=== PATIENT | female | born 1960 | race Hispanic/Latino ===

== ENCOUNTER 2019-10-02 15:43 | Outpatient (CLI) | payer OTHER, SELFPAY ==
--- NOTE | ~2019-10-02 | MM_ITS ---
EXAMINATION: MM screening carlos BI w jacklyn HISTORY: Screening mammogram TECHNIQUE: Craniocaudal and mediolateral oblique 3-D tomosynthesis images were obtained and synthetic 2-D images were generated. CAD analysis was submitted and interpreted. COMPARISON: 11/15/2016 bilateral digital screening mammogram BREAST PARENCHYMAL COMPOSITION: FINDINGS: There is no evidence of suspicious mass, calcification, or architectural distortion to sugg est malignancy in either breast. There has been no suspicious interval change. IMPRESSION: 1. No mammographic evidence of malignancy. 2. Recommend routine screening mammography in one year. BI-RADS Category 1: Negative Reviewed, dictated and finalized at location A.
== END 2019-10-02 15:44 | disposition home or self-care (01) ==
LOC: ANHIMG 15:45
PROVIDERS: PCP Nurse Practitioner Family; Visit Provider Nurse Practitioner Family
DX: Z12.31 Encounter for screening mammogram for malignant neoplasm of breast (principal)
CPT/HCPCS: 77063; 77067

== ENCOUNTER 2021-02-07 17:21 | Inpatient (IN) | payer OTHER, SELFPAY ==
[2021-02-07] VITALS (7 sets, daily range): BP systolic 115–131; BP diastolic 69–88; PULSE 77–87; RESP 18–22; TEMP 37.2; O2SAT 91–94
--- NOTE | ~2021-02-07 | XR_ITS ---
EXAMINATION: XR chest 1V portable DATE: 02/15/2021 06:53 INDICATION: COVID TECHNIQUE: frontal view of the chest was obtained. COMPARISON: Chest radiograph dated 02/11/2021 FINDINGS: Patchy and bandlike opacities throughout the right lung relatively sparing the apex and in the left m id and lower lung zones consistent with COVID pneumonia. No pleural effusion or pneumothorax. The car diomediastinal silhouette is normal. IMPRESSION: 1. No significant change in diffuse bilateral lung disease consistent with COVID pneumonia. Reviewed, dictated and finalized at location A. CAL MASSAGE THERAPIST IMPRESSION: 1. No significant change in diffuse bilateral lung disease consistent with COVI D pneumonia.
--- NOTE | ~2021-02-07 | XR_ITS ---
EXAMINATION: XR chest 1V portable EXAM DATE: 02/07/2021 18:47 INDICATION: chest pain, COVID +, Symptoms Since 01/29, Coughing. TECHNIQUE: Portable AP frontal chest x-ray was obtained. Comparison is made to prior examination from 07/14/2015. FINDINGS: Moderate amount of bilateral ill-defined airspace disease, probably pneumonia (appearance i s consistent with Covid 19). No pneumothorax or pleural effusion. Cardiomediastinal silhouette is nor mal. There are no osseous abnormalities identified. IMPRESSION: Moderate amount of bilateral pneumonia. Reviewed, dictated and finalized at location A. N FACTORS ADVISOR LEAD
--- NOTE | ~2021-02-07 | US_ITS ---
EXAMINATION: US venous doppler LE BI EXAM DATE: 02/12/2021 14:29 INDICATION: LE swelling, COVID 19. TECHNIQUE: Multiple grayscale, color flow and Doppler images of the lower extremity deep venous syste ms bilaterally were obtained and reviewed. There is no prior study for comparison. FINDINGS: Right side: The right common femoral, femoral and profunda veins demonstrate normal color flow, respi ratory variation, augmentation and compressibility. Compressibility, color flow confirmed within the right popliteal, posterior tibial, peroneal, and greater saphenous veins. Left side: The left common femoral, femoral and profunda veins demonstrate normal color flow, respira tory variation, augmentation and compressibility. Compressibility, color flow confirmed within the l eft popliteal, posterior tibial, peroneal, and greater saphenous veins. IMPRESSION: 1. No lower extremity deep venous thrombosis bilaterally. Reviewed, dictated and finalized at location A. MAKER PLASTER
--- NOTE | ~2021-02-07 | XR_ITS ---
EXAMINATION: XR chest 1V portable EXAM DATE: 02/11/2021 16:13 INDICATION: COVID pneumonia. TECHNIQUE: Portable AP frontal chest x-ray was obtained. Comparison is made to prior examination from 02/07/2021. FINDINGS: Moderate amount of bilateral ill-defined airspace disease, COVID pneumonia with mild progre ssion compared to previous x-ray. Mild cardiomegaly. No pneumothorax or pleural effusion. There are n o osseous abnormalities identified. IMPRESSION: Moderate amount of bilateral COVID pneumonia, mild progression. Reviewed, dictated and finalized at location A. ONOMY INSTRUCTOR
--- NOTE | ~2021-02-07 | CT_ITS ---
EXAMINATION: CTA chest PE protocol EXAM DATE: 02/08/2021 18:13 INDICATION: Pleuritic chest pain. COVID. TECHNIQUE: Spiral CTA of the chest (pulmonary arteries) was performed with 100 cc Omnipaque 350 intr avenous contrast injection. Images were acquired during the pulmonary arterial phase. Coronal maxi mum intensity projection 3D-reconstructions were created by the technologist on dedicated workstation . Axial, coronal and sagittal reformatted images were reviewed. The dose-length product (DLP) for t his examination was 563.02 mGy-cm. The exposure was tailored according to patient size (auto mA exp osure control), and iterative reconstruction (ASIR) was used as additional dose reduction technique. There is no prior study for comparison. FINDINGS: Pulmonary arteries are well opacified and without intraluminal filling defects. No thora cic aortic dissection. Moderate amount of bilateral groundglass airspace disease, appearance is cons istent with acute COVID pneumonia. There are no pleural or pericardial effusions. Tracheobronchial tree is patent. There is no mediastinal, hilar or axillary lymphadenopathy. There is no pneumoth orax. Heart normal in size. No evidence of coronary arterial calcification. Hepatic steatosis. There is thoracic spondylosis without osteoblastic or osteolytic lesions identified. IMPRESSION: 1. Moderate amount of bilateral groundglass airspace disease consistent with COVID pneumonia. 2. No pulmonary emboli. 3. Hepatic steatosis. Reviewed, dictated and finalized at location A. M AND GAS TURBINES ASSEMBLER IMPRESSION: 1. Moderate amount of bilateral groundglass airspace disease consistent with C OVID pneumonia. 2. No pulmonary emboli. 3. Hepatic steatosis.
--- NOTE | 2021-02-07 17:23 | ECG_ITS ---
Measurements Intervals [place] Rate: 83 P: 53 HI: 170 QRS: -4 QRSD: 89 T: 23 QT: 365 QTc: 431 Interpretive Statements SINUS RHYTHM DELAYED PRECORDIAL R/S TRANSITION BORDERLINE ECG Electronically Signed On 02-07-2021 20:05:39 BUSINESS TEACHER by Yemi Jefferson D.O.
[2021-02-07 17:59] LABS: Basophils Percent Auto 0.2 % (0.2-1.2); Hematocrit 36.6 % (37.0-47.0); Hemoglobin 12.5 g/dL (12.0-15.0); Immature Granulocyte Absolute 0.02 K/mm3 (0.00-0.031); Immature Granulocyte Percent A 0.3 % (0-0.5); Lymphocytes Absolute Auto 0.62 K/mm3 (0.9-3.2); Lymphocytes Percent Auto 10.2 % (18.3-44.2); Mean Corpuscular HGB Conc 34.2 g/dl (32-36); Mean Corpuscular Hemoglobin 31.3 pg (26-34); Mean Corpuscular Volume 91.5 fl (80-100); Mean Platelet Volume 9.3 fl (7.4-10.4); Monocytes Absolute Auto 0.2 K/mm3 (0.1-0.6); Monocytes Percent Auto 3.1 % (2.6-8.5); Neutrophils Absolute Auto 5.2 K/mm3 (1.3-6.7); Neutrophils Percent Auto 86.2 % (45.5-73.1); Platelet Count Result 254 k/mm3 (150-375); Red Cell Distribution Width 12.7 % (11.5-14.5); White Blood Count 6.1 K/mm3 (4.5-10.0)
[2021-02-07 18:10] LABS: Prothrombin Time 12.8 Seconds (11.1-14.7)
[2021-02-07 18:11] LABS: Alanine Aminotransferase 35 U/L (4-35); Albumin Level 3.8 g/dL (3.5-5.1); Alkaline Phosphatase 68 U/L (38-126); Anion Gap 7 mmol/L (8-16); Aspartate Amino Transferase 50 U/L (14-36); Bilirubin,Total 0.4 mg/dL (0.2-1.3); Blood Urea Nitrogen 12 mg/dL (7-17); Carbon Dioxide 30 mmol/L (22-30); Chloride 95 mmol/L (98-107); Estimated CRCL calculation 78 ml/min; Estimated Glomerular Filt Rate > 60; Glucose 124 mg/dL (65-110); Lipase 133 U/L (23-300); Partial Thromboplastin Time 32.1 SECONDS (22.3-36.8); Potassium 3.8 mmol/L (3.4-5.0); Sodium 132 mmol/L (137-145)
[2021-02-07 18:22] LABS: Troponin I < 0.012 ng/mL (0.000-0.034)
--- NOTE | 2021-02-07 19:08 | ED.SOB ---
HPI - SOB/Dyspnea General Chief Complaint: Shortness of Breath/Dyspnea Stated Complaint: COVID + cough Time Seen by Provider: 02/07/21 18:51 Source: patient Mode of arrival: EMS Limitations: no limitations History of Present Illness HPI Narrative: 60-year-old with a history of hypothyroidism here with complaints of shortness of breath, cough. Patient states that she tested positive for Covid over the weekend. She states her who was diagnosed first and later she developed the symptoms. She is not vaccinated. She denies any chest pain, nausea or vomiting or abdominal pain. MD elicited complaint: shortness of breath and cough Onset (ago): day(s) (4) Timing: constant Severity: moderate Exacerbating factors: exertion Relieving factors: oxygen and rest Associated symptoms: denies other symptoms Treatment prior to arrival: none Related Data Home oxygen amount: none Home Medications Medication Instructions Recorded Confirmed bimatoprost [Lumigan] 1 drp EACH EYE HS 02/07/21 02/07/21 escitalopram oxalate 10 mg PO HS 02/07/21 02/07/21 levothyroxine 100 mcg PO DAILY 02/07/21 02/07/21 Allergies Allergy/AdvReac Type Severity Reaction Status Date / Time No Known Allergies Allergy Unverified 07/27/15 17:45 Review of Systems Review of Systems: All systems reviewed & are unremarkable except as noted in HPI and below Constitutional: Constitutional: Reports no additional constitutional complaints Eyes: Eyes: Reports no additional eye complaints ENT: Reports system reviewed and no additional complaints, except as documented Cardiovascular: Cardiovascular: Reports no additional cardiovascular complaints Respiratory: Respiratory: Reports as per HPI Gastrointestinal: Gastrointestinal: Reports no additional gastrointestinal complaints Musculoskeletal: Musculoskeletal: Reports no additional musculoskeletal complaints Integumentary/Breasts: Skin/Breast: Reports system reviewed and no additional complaints, except as docu Neurologic: Reports system reviewed and no additional complaints, except as documented Psychiatric: Psychiatric: Reports no additional psychiatric complaints [facility] Past Medical History Medical History (Updated 02/07/21 @ 20:12 by Kayleen Boland DO) Depression Hypothyroidism Family History Family History (Updated 02/07/21 @ 23:11 by Debi Garcia RN) Mother Hx of CABG Father Cerebrovascular accident Hypertension Hypotension Sibling Cancer Social History Social History Smoking status: Never smoker Alcohol intake: former Substance use: never Spiritual care concerns: No Exam Narrative: GENERAL: Well-appearing, well-nourished, and in no acute distress. HEAD: Normocephalic, atraumatic. EYES: PERRLA and EOMI. NECK: Supple. CHEST: No respiratory distress. coarse breath sounds , no wheeze. HEART: Regular rate and rhythm. No murmur heard. Normal peripheral pulses. ABDOMEN: Soft, nontender, nondistended, normal active bowel sounds. EXTREMITIES: Normal range of motion. No edema. SKIN: Warm, dry, no rash. NEURO: No focal deficits. Alert and oriented x3. PSYCH: Normal mood and affect. Course Course Emergency Course: Inform patient about her lab work, x-ray findings. Agreed for admission. We will start IV Decadron and remdesivir. discussed with hospitalist . Vital Signs Vital signs: Vital Signs Temperature 37.2 C 02/07/21 17:23 Pulse Rate 87 02/07/21 17:23 Respiratory Rate 20 02/07/21 17:23 Blood Pressure 131/69 02/07/21 17:23 Pulse Oximetry 93 02/07/21 17:23 Temperature 37.2 C 02/07/21 17:23 Pulse Rate 87 02/07/21 22:37 Respiratory Rate 18 02/07/21 22:37 Blood Pressure 131/77 02/07/21 22:37 Pulse Oximetry 92 02/07/21 22:37 MDM - SOB/Dyspnea MDM Narrative Medical decision making narrative: With a history of recent diagnosis of Covid at home with shortn
[2021-02-07] MEDS: DEXAMETHASONE SOD PHOS INJ 4 MG/ML VIAL 6 MG IV PUSH (19:31)
--- NOTE | 2021-02-07 19:47 | PM.IMHP ---
H&P: HPI History of Present Illness Date/Time: 02/07/21 19:47 Chief Complaint: Shortness of breath, COVID positive Narrative: 60-year-old female with a past medical history of obesity, obstructive sleep apnea and hypothyroidism who presented to the ER via EMS with chest pain and shortness of breath. The patient reports that she has been having upper respiratory symptoms with nonproductive cough, fevers and chills since . She tested positive for COVID on 01/29/2021. She did not receive a COVID vaccine. She has also had accompanying occasional nausea. She has not had any vomiting. She did have a couple of days of loose stools but her last diarrheal stool was on the . Her stools have been brown and watery. She reports that she has pleuritic chest pain that is not worse with cough or palpation. She has not noticed any lower extremity swelling. She has noticed nocturnal hypoxia with oxygen saturations as low as 84%. She does have a history of obstructive sleep apnea but never followed up for her titrating polysomnogram. She reports that even before she had COVID she would occasionally in a panic because she felt like she was drowning. Since she has had COVID this has been happening much more frequently. She denies any orthopnea as long she is not sleep. She does snore in sleeps very restlessly on regular basis. She reports her oxygen saturations during the day have been as low as 91. During our conversation the patient's oxygen saturation did briefly dropped to 89%. Her fevers have been above 102? at times. Her last fever was this morning. She has been taking [id number] cough suppressants, Tylenol, ibuprofen and Aleve as needed to attempt to relieve her symptoms without much success. She reports that her [id number] is currently hospitalized at another hospital and is ?touching go. Her [id number] is 94 years old. Her mother had COVID last year and likely does not have symptoms at this time. Review of Systems Review of Systems: 12 systems were reviewed with pertinent positives and negatives per HPI. Except as documented in the HPI, all other systems were reviewed and are negative. [facility] Past Medical History Medical History (Updated 02/08/21 @ 00:34 by Kayleen Boland DO) Depression Glaucoma Hepatic steatosis Hypothyroidism Obstructive sleep apnea Surgical History Surgical History (Updated 02/08/21 @ 00:34 by Kayleen Boland DO) History of hysterectomy (~1991) Without oophorectomy. 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 She has been to her current for 6 years. She has 3 children who are reportedly healthy. Primary care provider: Tia Barros Code status: Full code Surrogate decision maker: Reshma Muller (daughter) Smoking status: Never smoker Alcohol intake: former Substance use: never Spiritual care concerns: No Meds Home Medications and Allergies Home Medications Medication Instructions Recorded Confirmed Type bimatoprost [Lumigan] 1 drp EACH EYE HS 02/07/21 02/07/21 History escitalopram oxalate 10 mg PO HS 02/07/21 02/07/21 History levothyroxine 100 mcg PO DAILY 02/07/21 02/07/21 History Allergies Allergy/AdvReac Type Severity Reaction Status Date / Time No Known Allergies Allergy Unverified 07/27/15 17:45 Vital Signs Vital Signs - 24 hr 02/07/21 17:23 02/07/21 19:23 02/07/21 19:32 Temperat
[2021-02-07 19:53] LABS: Alanine Aminotransferase 36 U/L (4-35); Estimated CRCL calculation 78 ml/min; Estimated Glomerular Filt Rate > 60
[2021-02-07 20:02] LABS: INR 0.9; Prothrombin Time 12.5 Seconds (11.1-14.7)
--- NOTE | 2021-02-07 20:33 | PC.NURSE ---
Pt ambulated to restroom, changed clothing/gown, remained 94% on room air.
[2021-02-07 22:04] LABS: Troponin I < 0.012 ng/mL (0.000-0.034)
[2021-02-07] MEDS: REMDESIVIR 200 MG/NS 250 ML 200 MG/250 ML BAG 250 MG IVPB (22:37)
--- NOTE | 2021-02-07 23:06 | ADMGEN ---
This patient, Mandie Montoya, was admitted to 3 [facility] Surg Room 309-01 at 2245 . Patient/family oriented to hospital policies and general routines including ID bracelet, bed and alarms, visiting hours, pain management, procedures, bathroom and other care routines, personal items, smoking policy, room service/diet, and visiting hours. Information on how to activate the Rapid Response Team has been discussed. Patient/Family are encouraged to report perceived risks to care and to ask questions if they do not understand what they are told or what they should do.
[2021-02-08] VITALS (11 sets, daily range): BP systolic 102–131; BP diastolic 54–68; PULSE 71–85; RESP 18–22; TEMP 35.8–36.7; O2SAT 87–93
[2021-02-08 00:06] LABS: Troponin I < 0.012 ng/mL (0.000-0.034)
[2021-02-08] MEDS: LEVOTHYROXINE SODIUM 100 MCG TABLET PO (05:47)
[2021-02-08 07:20] LABS: Basophils Percent Auto 0.2 % (0.2-1.2); Hematocrit 38.3 % (37.0-47.0); Hemoglobin 12.8 g/dL (12.0-15.0); Immature Granulocyte Absolute 0.03 K/mm3 (0.00-0.031); Immature Granulocyte Percent A 0.6 % (0-0.5); Lymphocytes Absolute Auto 0.74 K/mm3 (0.9-3.2); Lymphocytes Percent Auto 14.4 % (18.3-44.2); Mean Corpuscular HGB Conc 33.4 g/dl (32-36); Mean Corpuscular Hemoglobin 30.1 pg (26-34); Mean Corpuscular Volume 90.1 fl (80-100); Mean Platelet Volume 9.5 fl (7.4-10.4); Monocytes Absolute Auto 0.2 K/mm3 (0.1-0.6); Monocytes Percent Auto 4.3 % (2.6-8.5); Neutrophils Absolute Auto 4.1 K/mm3 (1.3-6.7); Neutrophils Percent Auto 80.5 % (45.5-73.1); Platelet Count Result 291 k/mm3 (150-375); Red Blood Count 4.25 M/mm3 (4.2-5.4); Red Cell Distribution Width 12.6 % (11.5-14.5); White Blood Count 5.1 K/mm3 (4.5-10.0)
[2021-02-08 08:01] LABS: Alanine Aminotransferase 34 U/L (4-35); Albumin Level 3.7 g/dL (3.5-5.1); Alkaline Phosphatase 65 U/L (38-126); Anion Gap 9 mmol/L (8-16); Aspartate Amino Transferase 47 U/L (14-36); Bilirubin,Total 0.4 mg/dL (0.2-1.3); Blood Urea Nitrogen 13 mg/dL (7-17); Calcium 7.9 mg/dL (8.4-10.2); Carbon Dioxide 28 mmol/L (22-30); Chloride 95 mmol/L (98-107); Estimated CRCL calculation 90 ml/min; Estimated Glomerular Filt Rate > 60; Glucose 153 mg/dL (65-110); Lactate Dehydrogenase 956 U/L (313-618); Potassium 3.7 mmol/L (3.4-5.0); Sodium 132 mmol/L (137-145)
[2021-02-08 08:08] LABS: CRP 12.3 mg/dL (<1.0)
[2021-02-08 08:20] LABS: INR 1.1; Prothrombin Time 13.6 Seconds (11.1-14.7)
[2021-02-08 08:23] LABS: D Dimer 0.99 ug/mL (<0.48)
--- NOTE | 2021-02-08 09:00 | PC.NURSE ---
Patient's daughter, Callie Lowery called and requested an update on patient. Spoke with patient and asked if I could provide Callie with an update on her status, patient stated, you can talk with all of my daughter, Reshma Muller, Rina Ashby and Callie Lowery . SN contacted Callie at number provided and updated her on her mother's current condition.
[2021-02-08] MEDS: DEXAMETHASONE SOD PHOS INJ 4 MG/ML VIAL 6 MG IV PUSH (09:17)
[2021-02-08] MEDS: ENOXAPARIN 40 MG/0.4 ML SYRINGE SUB-Q (09:17)
--- NOTE | 2021-02-08 16:41 | PM.IMPN ---
Progress Note: A&P Assessment and Plan (1) Pneumonia due to 2019-nCoV: Code(s): U07.1 - COVID-19; J12.82 - Pneumonia due to coronavirus disease 2018 Status: Acute Assessment and Plan: Patient was positive for COVID 01/29/2021 and had symptoms since Thanksgi -continue remdesivir, Decadron and Lovenox -she is currently on 2 L of oxygen and feeling better -D-dimer slightly elevated but she has persistent pleuritic chest pain. Will order CTA of the chest. Does not seem to be ACS (2) Acute respiratory failure with hypoxia: Code(s): J96.01 - Acute respiratory failure with hypoxia Status: Acute Assessment and Plan: Continue oxygen for sats less than 90 -secondary to above (3) Anxiety: Code(s): F41.9 - Anxiety disorder, unspecified Status: Acute Assessment and Plan: Continue Lexapro (4) Hypothyroidism: Code(s): E03.9 - Hypothyroidism, unspecified Status: Acute Assessment and Plan: Continue levothyroxine (5) Transaminitis: Code(s): R74.01 - Elevation of levels of liver transaminase levels Status: Acute Assessment and Plan: Likely due to acute illness -monitor Time Spent With Patient Time with patient: 25 - 35 minutes Subjective Date/time seen: 02/08/21 16:41 Interval history: Pt is a 60-year-old female here for COVID. Patient was seen today and states she is doing better now that her oxygen is better. She has shortness of breath with movement but does okay at rest. She has pain in her chest with deep breathing. The pain is located right in the middle and feels fine when she takes shallow breaths. She has a decreased appetite and has had diarrhea once today. She was not vaccinated Review of Systems Review of Systems: All systems reviewed & are unremarkable except as noted in HPI and below Exam Narrative: General: Well developed well nourished patient in NAD HEENT: normocephalic Neck: supple Neuro: Alert and oriented x4 CV:RRR Resp: Crackles, bilaterally. No conversational dyspnea Abd: Soft, non distended. No pain to palpation. Positive bowel sounds Extremities: No swelling, erythema, or pain to palpation. Objective Data Vital Signs Vital Signs: Vital Signs - 24 hr 02/07/21 17:23 02/07/21 19:23 02/07/21 19:30 Temperature 98.9 F Pulse Rate 87 85 Respiratory Rate 20 20 Blood Pressure 131/69 Pulse Oximetry 93 91 94 02/07/21 19:32 02/07/21 19:33 02/07/21 21:25 Temperature Pulse Rate 77 80 85 Respiratory Rate 19 22 H Blood Pressure 126/71 115/88 Pulse Oximetry 94 93 02/07/21 22:37 02/08/21 02:05 02/08/21 05:08 Temperature Pulse Rate 87 78 75 Respiratory Rate 18 22 H 19 Blood Pressure 131/77 Pulse Oximetry 92 91 92 02/08/21 05:45 02/08/21 06:00 02/08/21 08:00 Temperature 98.1 F 97.3 F L Pulse Rate 84 84 75 Respiratory Rate 18 18 20 Blood Pressure 102/54 L 118/64 Pulse Oximetry 93 93 90 02/08/21 12:00 02/08/21 13:02 02/08/21 15:17 Temperature 96.5 F L Pulse Rate 85 Respiratory Rate 18 Blood Pressure 119/63 Pulse Oximetry 89 L 90 92 Intake/Output Intake/Output: Intake & Output 02/05/21 02/06/21 02/07/21 02/08/21 23:59 23:59 23:59 23:59 Intake Total 250 1190 Output Total 800 Balance 250 390 Meds/Results Medications: Active Medications Generic Name Dose Route Start Last Admin Trade Name Freq PRN Reason Stop Dose Admin Acetaminophen 650 mg 02/07/21 19:21 Acetaminophen 325 Mg Tablet PO Q4H PRN Mild Pain (1-3) or Fever Dexamethasone Sodium Phosphate 6 mg 02/08/21 09:00 02/08/21 09:17 Dexamethasone Sod Phos Inj 4 Mg/Ml Vial IV PUSH 02/17/21 09:01 6 mg DAILY KAY Administration Enoxaparin Sodium 40 mg 02/08/21 09:00 02/08/21 09:17 Enoxaparin 40 Mg/0.4 Ml Syringe SUB-Q 40 mg DAILY KAY Administration Escitalopram Oxalate 10 mg 02/08/21 21:00 Escitalopram
[2021-02-08] MEDS: LATANOPROST 0.005% OP SOLN 2.5 ML BTL 1 DROP EACH EYE (20:26)
[2021-02-08] MEDS: ESCITALOPRAM OXALATE 10 MG TABLET PO (20:26)
[2021-02-08] MEDS: REMDESIVIR 100 MG/NS 250 ML 100 MG/250 ML BAG 250 MG IVPB (22:31)
[2021-02-08] MEDS: ACETAMINOPHEN 325 MG TABLET 650 MG PO (22:32)
[2021-02-09] VITALS (10 sets, daily range): BP systolic 94–117; BP diastolic 52–67; PULSE 58–76; RESP 18; TEMP 35.9–36.3; O2SAT 88–98
--- NOTE | 2021-02-09 00:09 | PCRCNOTE ---
pt refusing CPAP stating that it does not work the way she would like and she does better laying prone with a nasal cannula. in standby in pt room
[2021-02-09] MEDS: LEVOTHYROXINE SODIUM 100 MCG TABLET PO (06:21)
[2021-02-09 06:55] LABS: Hematocrit 36.6 % (37.0-47.0); Hemoglobin 12.3 g/dL (12.0-15.0); Mean Corpuscular HGB Conc 33.6 g/dl (32-36); Mean Corpuscular Hemoglobin 30.4 pg (26-34); Mean Corpuscular Volume 90.6 fl (80-100); Mean Platelet Volume 9.3 fl (7.4-10.4); Platelet Count Result 323 k/mm3 (150-375); Red Blood Count 4.04 M/mm3 (4.2-5.4); Red Cell Distribution Width 12.7 % (11.5-14.5); White Blood Count 11.5 K/mm3 (4.5-10.0)
[2021-02-09 07:03] LABS: INR 1.1
[2021-02-09 07:08] LABS: Alanine Aminotransferase 41 U/L (4-35); Albumin Level 3.3 g/dL (3.5-5.1); Alkaline Phosphatase 61 U/L (38-126); Anion Gap 8 mmol/L (8-16); Aspartate Amino Transferase 54 U/L (14-36); Bilirubin,Total 0.4 mg/dL (0.2-1.3); Blood Urea Nitrogen 18 mg/dL (7-17); CRP 5.2 mg/dL (<1.0); Carbon Dioxide 32 mmol/L (22-30); Chloride 99 mmol/L (98-107); Estimated CRCL calculation 69 ml/min; Estimated Glomerular Filt Rate > 60; Glucose 131 mg/dL (65-110); Potassium 3.8 mmol/L (3.4-5.0); Sodium 139 mmol/L (137-145)
[2021-02-09] MEDS: ENOXAPARIN 40 MG/0.4 ML SYRINGE SUB-Q (08:11)
[2021-02-09] MEDS: DEXAMETHASONE SOD PHOS INJ 4 MG/ML VIAL 6 MG IV PUSH (08:11)
--- NOTE | 2021-02-09 16:11 | PM.IMPN ---
Progress Note: A&P Assessment and Plan (1) Pneumonia due to 2019-nCoV: Code(s): U07.1 - COVID-19; J12.82 - Pneumonia due to coronavirus disease 2018 Status: Acute Assessment and Plan: Patient was positive for COVID 01/29/2021 and had symptoms since [place] -continue remdesivir, Decadron and Lovenox -she is currently on 4 L of oxygen and feeling better -CTA negative for PE (2) Acute respiratory failure with hypoxia: Code(s): J96.01 - Acute respiratory failure with hypoxia Status: Acute Assessment and Plan: Continue oxygen for sats less than 90 -secondary to above (3) Anxiety: Code(s): F41.9 - Anxiety disorder, unspecified Status: Acute Assessment and Plan: Continue Lexapro (4) Hypothyroidism: Code(s): E03.9 - Hypothyroidism, unspecified Status: Acute Assessment and Plan: Continue levothyroxine (5) Transaminitis: Code(s): R74.01 - Elevation of levels of liver transaminase levels Status: Acute Assessment and Plan: Likely due to acute illness -monitor Subjective Date/time seen: 02/09/21 16:11 Interval history: Pt is a 60-year-old female here for COVID. Patient was seen today and feels about the same as yesterday. She continues to have shortness of breath and a dry cough. She has chest pain with deep inspiration and has been trying to take deeper breaths today and is able to use the incentive spirometer. She continues to have loose stool Exam Narrative: General: Well developed well nourished patient in NAD HEENT: normocephalic Neck: supple Neuro: Alert and oriented x4 CV:RRR Resp: Crackles, bilaterally. No conversational dyspnea Abd: Soft, non distended. No pain to palpation. Positive bowel sounds Extremities: No swelling, erythema, or pain to palpation. Objective Data Vital Signs Vital Signs: Vital Signs - 24 hr 02/08/21 20:00 02/08/21 21:48 02/09/21 00:09 Temperature 97.2 F L Pulse Rate 71 71 Respiratory Rate 18 18 Blood Pressure 131/68 Pulse Oximetry 92 90 92 02/09/21 05:45 02/09/21 08:00 02/09/21 08:02 Temperature 97.3 F L 96.7 F L Pulse Rate 65 72 Respiratory Rate 18 18 Blood Pressure 94/52 L 115/64 Pulse Oximetry 98 88 L 91 02/09/21 11:00 02/09/21 11:02 Temperature Pulse Rate Respiratory Rate Blood Pressure Pulse Oximetry 88 L 92 Intake/Output Intake/Output: Intake & Output 02/06/21 02/07/21 02/08/21 02/09/21 23:59 23:59 23:59 23:59 Intake Total 250 1980 950 Output Total 800 1000 Balance 250 1180 -50 Meds/Results Medications: Active Medications Generic Name Dose Route Start Last Admin Trade Name Freq PRN Reason Stop Dose Admin Acetaminophen 650 mg 02/07/21 19:21 02/08/21 22:32 Acetaminophen 325 Mg Tablet PO 650 mg Q4H PRN Administration Mild Pain (1-3) or Fever Dexamethasone Sodium Phosphate 6 mg 02/08/21 09:00 02/09/21 08:11 Dexamethasone Sod Phos Inj 4 Mg/Ml Vial IV PUSH 02/17/21 09:01 6 mg DAILY KAY Administration Enoxaparin Sodium 40 mg 02/08/21 09:00 02/09/21 08:11 Enoxaparin 40 Mg/0.4 Ml Syringe SUB-Q 40 mg DAILY KAY Administration Escitalopram Oxalate 10 mg 02/08/21 21:00 02/08/21 20:26 Escitalopram Oxalate 10 Mg Tablet PO 10 mg HS KAY Administration Remdesivir 100 mg in 250 mls @ 250 mls/hr 02/08/21 22:00 02/08/21 22:31 IVPB 02/12/21 21:59 250 mls/hr Q24H KAY Administration Latanoprost 1 drop 02/08/21 21:00 02/08/21 20:26 Latanoprost 0.005% Op Soln 2.5 Ml Btl EACH EYE 1 drop HS KAY Administration Levothyroxine Sodium 100 mcg 02/08/21 06:30 02/09/21 06:21 Levothyroxine Sodium 100 Mcg Tablet PO 100 mcg DAILY@0630 KAY Administration Ondansetron HCl 4 mg 02/07/21 19:21 Ondansetron Inj 4 Mg/2 Ml Vial IV PUSH Q4H PRN Nausea Radiology Results: ITS Impressions Chest X-Ray 02/07/21 18:52 IMPRES
[2021-02-09] MEDS: ACETAMINOPHEN 325 MG TABLET 650 MG PO (18:32)
[2021-02-09] MEDS: ESCITALOPRAM OXALATE 10 MG TABLET PO (21:12)
[2021-02-09] MEDS: LATANOPROST 0.005% OP SOLN 2.5 ML BTL 1 DROP EACH EYE (21:12)
[2021-02-09] MEDS: REMDESIVIR 100 MG/NS 250 ML 100 MG/250 ML BAG 250 MG IVPB (21:13)
[2021-02-10 06:28] VITALS: BP 105/58; PULSE 58; RESP 16; TEMP 36.2; O2SAT 94
[2021-02-10] MEDS: LEVOTHYROXINE SODIUM 100 MCG TABLET PO (06:40)
[2021-02-10 07:06] LABS: Hematocrit 37.5 % (37.0-47.0); Hemoglobin 12.3 g/dL (12.0-15.0); Mean Corpuscular HGB Conc 32.8 g/dl (32-36); Mean Corpuscular Hemoglobin 30.4 pg (26-34); Mean Corpuscular Volume 92.8 fl (80-100); Mean Platelet Volume 9.6 fl (7.4-10.4); Platelet Count Result 353 k/mm3 (150-375); Red Blood Count 4.04 M/mm3 (4.2-5.4); Red Cell Distribution Width 12.7 % (11.5-14.5); White Blood Count 8.6 K/mm3 (4.5-10.0)
[2021-02-10 07:24] LABS: Alanine Aminotransferase 46 U/L (4-35); Albumin Level 3.4 g/dL (3.5-5.1); Alkaline Phosphatase 60 U/L (38-126); Anion Gap 3 mmol/L (8-16); Aspartate Amino Transferase 52 U/L (14-36); Bilirubin,Total 0.4 mg/dL (0.2-1.3); Blood Urea Nitrogen 18 mg/dL (7-17); CRP 3.6 mg/dL (<1.0); Carbon Dioxide 33 mmol/L (22-30); Chloride 99 mmol/L (98-107); Estimated CRCL calculation 78 ml/min; Estimated Glomerular Filt Rate > 60; Glucose 110 mg/dL (65-110); Potassium 3.6 mmol/L (3.4-5.0); Sodium 135 mmol/L (137-145)
[2021-02-10 07:44] LABS: INR 1.1; Prothrombin Time 13.8 Seconds (11.1-14.7)
[2021-02-10 08:00] LABS: Hepatitis B Surface Antigen Negative (Negative)
[2021-02-10 08:05] LABS: HAV RESULT Negative (Negative); Hepatitis B Core IgM Result Negative (Negative)
[2021-02-10 08:17] LABS: Hepatitis C Virus Antibody Negative (Negative)
[2021-02-10] MEDS: DEXAMETHASONE SOD PHOS INJ 4 MG/ML VIAL 6 MG IV PUSH (08:29)
[2021-02-10] MEDS: ENOXAPARIN 40 MG/0.4 ML SYRINGE SUB-Q (08:29)
[2021-02-10] MEDS: ACETAMINOPHEN 325 MG TABLET 650 MG PO (08:30)
[2021-02-10 14:00] VITALS: BP 118/69; PULSE 60; RESP 17; TEMP 36.2; O2SAT 92
--- NOTE | 2021-02-10 15:34 | PM.IMPN ---
Progress Note: A&P Assessment and Plan (1) Pneumonia due to 2019-nCoV: Code(s): U07.1 - COVID-19; J12.82 - Pneumonia due to coronavirus disease 2018 Status: Acute Assessment and Plan: Patient was positive for COVID 01/29/2021 and had symptoms since [place] -continue remdesivir, Decadron and Lovenox -she is currently on 4 L of oxygen and feeling better -CTA negative for PE (2) Acute respiratory failure with hypoxia: Code(s): J96.01 - Acute respiratory failure with hypoxia Status: Acute Assessment and Plan: Continue oxygen for sats less than 90 -secondary to above (3) Anxiety: Code(s): F41.9 - Anxiety disorder, unspecified Status: Acute Assessment and Plan: Continue Lexapro (4) Hypothyroidism: Code(s): E03.9 - Hypothyroidism, unspecified Status: Acute Assessment and Plan: Continue levothyroxine (5) Transaminitis: Code(s): R74.01 - Elevation of levels of liver transaminase levels Status: Acute Assessment and Plan: Likely due to acute illness -hepatitis negative -monitor Subjective Date/time seen: 02/10/21 15:34 Interval history: Pt is a 60-year-old female here for COVID. Patient was seen today and feels about the same as the last few days. She continues to have shortness of breath and a dry cough but is now coughing some stuff up. She has chest pain with deep inspiration and has been trying to take deeper breaths today and is able to use the incentive spirometer. No BM today. Exam Narrative: General: Well developed well nourished patient in NAD HEENT: normocephalic Neck: supple Neuro: Alert and oriented x4 CV:RRR Resp: Crackles, bilaterally. No conversational dyspnea. able to take deeper breaths today. Abd: Soft, non distended. No pain to palpation. Positive bowel sounds Extremities: No swelling, erythema, or pain to palpation. Objective Data Vital Signs Vital Signs: Vital Signs - 24 hr 02/09/21 16:00 02/09/21 20:00 02/09/21 22:31 Temperature 97.2 F L 97.1 F L Pulse Rate 68 58 L 58 L Respiratory Rate 18 18 18 Blood Pressure 117/63 116/66 Pulse Oximetry 97 94 94 02/10/21 06:28 02/10/21 14:00 Temperature 97.2 F L 97.1 F L Pulse Rate 58 L 60 Respiratory Rate 16 17 Blood Pressure 105/58 L 118/69 Pulse Oximetry 94 92 Intake/Output Intake/Output: Intake & Output 02/07/21 02/08/21 02/09/21 02/10/21 23:59 23:59 23:59 23:59 Intake Total 250 2230 1650 1120 Output Total 800 1000 600 Balance 250 1430 650 520 Meds/Results Medications: Active Medications Generic Name Dose Route Start Last Admin Trade Name Freq PRN Reason Stop Dose Admin Acetaminophen 650 mg 02/07/21 19:21 02/10/21 08:30 Acetaminophen 325 Mg Tablet PO 650 mg Q4H PRN Administration Mild Pain (1-3) or Fever Dexamethasone Sodium Phosphate 6 mg 02/08/21 09:00 02/10/21 08:29 Dexamethasone Sod Phos Inj 4 Mg/Ml Vial IV PUSH 02/17/21 09:01 6 mg DAILY KAY Administration Enoxaparin Sodium 40 mg 02/08/21 09:00 02/10/21 08:29 Enoxaparin 40 Mg/0.4 Ml Syringe SUB-Q 40 mg DAILY KAY Administration Escitalopram Oxalate 10 mg 02/08/21 21:00 02/09/21 21:12 Escitalopram Oxalate 10 Mg Tablet PO 10 mg HS KAY Administration Remdesivir 100 mg in 250 mls @ 250 mls/hr 02/08/21 22:00 02/09/21 22:10 IVPB 02/12/21 21:59 Infused Q24H KAY Infusion Latanoprost 1 drop 02/08/21 21:00 02/09/21 21:12 Latanoprost 0.005% Op Soln 2.5 Ml Btl EACH EYE 1 drop HS KAY Administration Levothyroxine Sodium 100 mcg 02/08/21 06:30 02/10/21 06:40 Levothyroxine Sodium 100 Mcg Tablet PO 100 mcg DAILY@0630 KAY Administration Ondansetron HCl 4 mg 02/07/21 19:21 Ondansetron Inj 4 Mg/2 Ml Vial IV PUSH Q4H PRN Nausea Radiology Results: ITS Impressions Chest X-Ray 02/07/21 18:52 IMPRESSION: Moderate amount of bilateral pneumonia.
[2021-02-10 16:10] VITALS: O2SAT 93
[2021-02-10 20:00] VITALS: BP 123/65; PULSE 48; RESP 18; TEMP 36.4; O2SAT 93
[2021-02-10 20:50] VITALS: O2SAT 93
[2021-02-10] MEDS: LATANOPROST 0.005% OP SOLN 2.5 ML BTL 1 DROP EACH EYE (20:50)
[2021-02-10] MEDS: ESCITALOPRAM OXALATE 10 MG TABLET PO (20:50)
[2021-02-10] MEDS: REMDESIVIR 100 MG/NS 250 ML 100 MG/250 ML BAG 250 MG IVPB (22:29)
[2021-02-11] VITALS (7 sets, daily range): BP systolic 111–133; BP diastolic 49–89; PULSE 49–72; RESP 18–24; TEMP 36.2–36.6; O2SAT 93–100
[2021-02-11] MEDS: LEVOTHYROXINE SODIUM 100 MCG TABLET PO (05:36)
[2021-02-11 07:27] LABS: Hematocrit 37.5 % (37.0-47.0); Hemoglobin 12.4 g/dL (12.0-15.0); Mean Corpuscular HGB Conc 33.1 g/dl (32-36); Mean Corpuscular Hemoglobin 30.5 pg (26-34); Mean Corpuscular Volume 92.1 fl (80-100); Mean Platelet Volume 9.8 fl (7.4-10.4); Platelet Count Result 364 k/mm3 (150-375); Red Blood Count 4.07 M/mm3 (4.2-5.4); Red Cell Distribution Width 12.7 % (11.5-14.5)
[2021-02-11 07:50] LABS: Alanine Aminotransferase 43 U/L (4-35); Albumin Level 3.3 g/dL (3.5-5.1); Alkaline Phosphatase 63 U/L (38-126); Anion Gap 5 mmol/L (8-16); Aspartate Amino Transferase 44 U/L (14-36); Bilirubin,Total 0.4 mg/dL (0.2-1.3); Blood Urea Nitrogen 19 mg/dL (7-17); CRP 2.2 mg/dL (<1.0); Carbon Dioxide 29 mmol/L (22-30); Chloride 101 mmol/L (98-107); Estimated CRCL calculation 90 ml/min; Estimated Glomerular Filt Rate > 60; Glucose 112 mg/dL (65-110); INR 1.1; Potassium 3.7 mmol/L (3.4-5.0); Sodium 135 mmol/L (137-145)
[2021-02-11] MEDS: DEXAMETHASONE SOD PHOS INJ 4 MG/ML VIAL 6 MG IV PUSH (10:10)
[2021-02-11] MEDS: ENOXAPARIN 40 MG/0.4 ML SYRINGE SUB-Q (10:10)
[2021-02-11] MEDS: ACETAMINOPHEN 325 MG TABLET 650 MG PO (10:18)
--- NOTE | 2021-02-11 15:37 | PM.IMPN ---
Progress Note: A&P Assessment and Plan (1) Pneumonia due to 2019-nCoV: Code(s): U07.1 - COVID-19; J12.82 - Pneumonia due to coronavirus disease 2018 Status: Acute Assessment and Plan: Patient was positive for COVID 01/29/2021 and had symptoms since [place] -continue remdesivir, Decadron and Lovenox. Will start baricitinib due to her increased o2 demand. -Pt was up walking early this morning and dropped and could not recover per RN. She is feeling better and now down to 8L. -repeat CXR shows COVID with mild progression -CTA 02/08 negative for PE (2) Acute respiratory failure with hypoxia: Code(s): J96.01 - Acute respiratory failure with hypoxia Status: Acute Assessment and Plan: Continue oxygen for sats less than 90 -secondary to above (3) Anxiety: Code(s): F41.9 - Anxiety disorder, unspecified Status: Acute Assessment and Plan: Continue Lexapro (4) Hypothyroidism: Code(s): E03.9 - Hypothyroidism, unspecified Status: Acute Assessment and Plan: Continue levothyroxine (5) Transaminitis: Code(s): R74.01 - Elevation of levels of liver transaminase levels Status: Acute Assessment and Plan: Likely due to acute illness -hepatitis negative -monitor Subjective Date/time seen: 02/11/21 15:37 Interval history: Pt is a 60-year-old female here for COVID. Patient was seen today and is doing better but did not have a good morning. She said she went up to go to the bathroom and felt very short of breath. She continued to cough pretty significantly and could not recover. she is feeling better now in on 8 L of oxygen. She continues to cough but is not taking as even breath today as she was yesterday. She says she feels like she had a setback. She has no nausea or vomiting and did not have any diarrhea. Exam Narrative: General: Well developed well nourished patient in NAD HEENT: normocephalic Neck: supple Neuro: Alert and oriented x4 CV:RRR Resp: Crackles, bilaterally. No conversational dyspnea. Unable to take deep breaths today. Abd: Soft, non distended. No pain to palpation. Positive bowel sounds Extremities: No swelling, erythema, or pain to palpation. Objective Data Vital Signs Vital Signs: Vital Signs - 24 hr 02/10/21 16:10 02/10/21 20:00 02/10/21 20:50 Temperature 97.6 F Pulse Rate 48 L Respiratory Rate 18 Blood Pressure 123/65 Pulse Oximetry 93 93 93 02/11/21 00:00 02/11/21 04:00 02/11/21 06:47 Temperature 97.9 F 97.1 F L Pulse Rate 52 L 72 Respiratory Rate 18 18 Blood Pressure 118/62 111/57 L Pulse Oximetry 93 97 93 02/11/21 08:00 02/11/21 11:56 Temperature 97.7 F 97.4 F L Pulse Rate 49 L 52 L Respiratory Rate 24 H 20 Blood Pressure 125/49 L 128/64 Pulse Oximetry 100 98 Intake/Output Intake/Output: Intake & Output 02/08/21 02/09/21 02/10/21 02/11/21 23:59 23:59 23:59 23:59 Intake Total 2230 1650 1870 770 Output Total 800 1000 600 950 Balance 4174 967 1255 -180 Meds/Results Medications: Active Medications Generic Name Dose Route Start Last Admin Trade Name Freq PRN Reason Stop Dose Admin Acetaminophen 650 mg 02/07/21 19:21 02/11/21 10:18 Acetaminophen 325 Mg Tablet PO 650 mg Q4H PRN Administration Mild Pain (1-3) or Fever Dexamethasone Sodium Phosphate 6 mg 02/08/21 09:00 02/11/21 10:10 Dexamethasone Sod Phos Inj 4 Mg/Ml Vial IV PUSH 02/17/21 09:01 6 mg DAILY KAY Administration Enoxaparin Sodium 40 mg 02/08/21 09:00 02/11/21 10:10 Enoxaparin 40 Mg/0.4 Ml Syringe SUB-Q 40 mg DAILY KAY Administration Escitalopram Oxalate 10 mg 02/08/21 21:00 02/10/21 20:50 Escitalopram Oxalate 10 Mg Tablet PO 10 mg HS KAY Administration Remdesivir 100 mg in 250 mls @ 250 mls/hr 02/08/21 22:00 02/10/21 23:20 IVPB 02/12/21 21:59 Infused Q24H KAY Infusion Latanoprost 1 drop 02/08/21 21:0
[2021-02-11 17:29] LABS: Basophils Percent Auto 0.2 % (0.2-1.2); Hematocrit 38.8 % (37.0-47.0); Hemoglobin 12.9 g/dL (12.0-15.0); Immature Granulocyte Absolute 0.15 K/mm3 (0.00-0.031); Immature Granulocyte Percent A 1.4 % (0-0.5); Lymphocytes Absolute Auto 1.24 K/mm3 (0.9-3.2); Lymphocytes Percent Auto 11.4 % (18.3-44.2); Mean Corpuscular HGB Conc 33.2 g/dl (32-36); Mean Corpuscular Hemoglobin 30.1 pg (26-34); Mean Corpuscular Volume 90.4 fl (80-100); Mean Platelet Volume 9.7 fl (7.4-10.4); Monocytes Absolute Auto 0.5 K/mm3 (0.1-0.6); Monocytes Percent Auto 4.5 % (2.6-8.5); Neutrophils Percent Auto 82.5 % (45.5-73.1); Platelet Count Result 421 k/mm3 (150-375); Red Blood Count 4.29 M/mm3 (4.2-5.4); Red Cell Distribution Width 12.6 % (11.5-14.5); White Blood Count 10.9 K/mm3 (4.5-10.0)
[2021-02-11 17:47] LABS: Platelet Estimate Increased (Adequate)
[2021-02-11 17:48] LABS: Atypical Lymphocytes Present
[2021-02-11] MEDS: BARICITINIB 2 MG TABLET 4 MG PO (19:07)
[2021-02-11] MEDS: REMDESIVIR 100 MG/NS 250 ML 100 MG/250 ML BAG 250 MG IVPB (22:42)
[2021-02-11] MEDS: LATANOPROST 0.005% OP SOLN 2.5 ML BTL 1 DROP EACH EYE (22:42)
[2021-02-11] MEDS: ESCITALOPRAM OXALATE 10 MG TABLET PO (22:42)
[2021-02-12] VITALS (8 sets, daily range): BP systolic 105–133; BP diastolic 47–71; PULSE 50–77; RESP 18–20; TEMP 35.9–36.8; O2SAT 90–98
[2021-02-12] MEDS: ACETAMINOPHEN 325 MG TABLET 650 MG PO (00:18)
[2021-02-12] MEDS: LEVOTHYROXINE SODIUM 100 MCG TABLET PO (06:42)
[2021-02-12 06:55] LABS: Basophils Percent Auto 0.2 % (0.2-1.2); Hematocrit 39.5 % (37.0-47.0); Immature Granulocyte Absolute 0.14 K/mm3 (0.00-0.031); Immature Granulocyte Percent A 1.6 % (0-0.5); Lymphocytes Absolute Auto 2.03 K/mm3 (0.9-3.2); Mean Corpuscular HGB Conc 32.9 g/dl (32-36); Mean Corpuscular Hemoglobin 30.4 pg (26-34); Mean Corpuscular Volume 92.3 fl (80-100); Mean Platelet Volume 9.7 fl (7.4-10.4); Monocytes Absolute Auto 0.6 K/mm3 (0.1-0.6); Monocytes Percent Auto 6.6 % (2.6-8.5); Neutrophils Absolute Auto 6.1 K/mm3 (1.3-6.7); Neutrophils Percent Auto 68.6 % (45.5-73.1); Platelet Count Result 394 k/mm3 (150-375); Red Blood Count 4.28 M/mm3 (4.2-5.4); Red Cell Distribution Width 12.6 % (11.5-14.5); White Blood Count 8.8 K/mm3 (4.5-10.0)
[2021-02-12 07:11] LABS: Alanine Aminotransferase 47 U/L (4-35); Albumin Level 3.4 g/dL (3.5-5.1); Alkaline Phosphatase 66 U/L (38-126); Anion Gap 5 mmol/L (8-16); Aspartate Amino Transferase 41 U/L (14-36); Bilirubin,Total 0.4 mg/dL (0.2-1.3); Blood Urea Nitrogen 15 mg/dL (7-17); CRP 2.4 mg/dL (<1.0); Calcium 8.4 mg/dL (8.4-10.2); Carbon Dioxide 33 mmol/L (22-30); Chloride 99 mmol/L (98-107); Estimated CRCL calculation 78 ml/min; Estimated Glomerular Filt Rate > 60; Glucose 108 mg/dL (65-110); Magnesium 2.2 mg/dL (1.6-2.3); Potassium 4.1 mmol/L (3.4-5.0); Sodium 137 mmol/L (137-145)
[2021-02-12 08:11] LABS: Anisocytosis 1+ (NORMAL); Platelet Estimate Adequate (Adequate)
[2021-02-12] MEDS: BARICITINIB 2 MG TABLET 4 MG PO (10:15)
[2021-02-12] MEDS: ENOXAPARIN 40 MG/0.4 ML SYRINGE SUB-Q (10:15)
[2021-02-12] MEDS: DEXAMETHASONE SOD PHOS INJ 4 MG/ML VIAL 6 MG IV PUSH (10:16)
--- NOTE | 2021-02-12 13:31 | PM.IMPN ---
Progress Note: A&P Assessment and Plan (1) Pneumonia due to 2019-nCoV: Code(s): U07.1 - COVID-19; J12.82 - Pneumonia due to coronavirus disease 2019 Status: Acute Assessment and Plan: Patient was positive for COVID 01/29/2021 and had symptoms since [place] -continue remdesivir, Decadron, baricitinib and Lovenox. -currently on 6L of o2, down from 15L -repeat CXR shows COVID with mild progression -CTA 02/08 negative for PE (2) Acute respiratory failure with hypoxia: Code(s): J96.01 - Acute respiratory failure with hypoxia Status: Acute Assessment and Plan: Continue oxygen for sats less than 90 -secondary to above (3) Anxiety: Code(s): F41.9 - Anxiety disorder, unspecified Status: Acute Assessment and Plan: Continue Lexapro (4) Hypothyroidism: Code(s): E03.9 - Hypothyroidism, unspecified Status: Acute Assessment and Plan: Continue levothyroxine (5) Transaminitis: Code(s): R74.01 - Elevation of levels of liver transaminase levels Status: Acute Assessment and Plan: Likely due to acute illness -hepatitis negative -monitor (6) Swelling of lower extremity: Code(s): M79.89 - Other specified soft tissue disorders Status: Acute Assessment and Plan: could be due to dependency but will check bnp, echo, and u/s due to COVID diagnosis. Pt states she has never had this in the past Subjective Date/time seen: 02/12/21 13:31 Interval history: Pt is a 60-year-old female here for COVID. Patient was seen today and is doing okay. She is afraid to take deep breaths because it causes her lungs and chest to hurt. She has been sitting up in the chair mostly. She continues to cough and she feels SOB intermittently. She started having LE swelling yesterday which is not normal for her. She is drinking more h20 because her mouth feels dry. No n/v/diarrhea/constipation Exam Narrative: General: Well developed well nourished patient in NAD HEENT: normocephalic Neck: supple Neuro: Alert and oriented x4 CV:RRR Resp: Crackles, bilaterally. No conversational dyspnea. Unable to take deep breaths today. Abd: Soft, non distended. No pain to palpation. Positive bowel sounds Extremities: 1+ pitting edema worse on the right leg. No erythema or pain Objective Data Vital Signs Vital Signs: Vital Signs - 24 hr 02/11/21 16:00 02/11/21 20:00 02/12/21 00:00 Temperature 97.6 F 97.3 F L 97.3 F L Pulse Rate 59 L 53 L 50 L Respiratory Rate 24 H 18 18 Blood Pressure 133/71 121/89 105/47 L Pulse Oximetry 98 95 97 02/12/21 04:00 02/12/21 08:00 02/12/21 12:00 Temperature 96.9 F L 96.6 F L 97.4 F L Pulse Rate 57 L 63 57 L Respiratory Rate 18 18 18 Blood Pressure 133/64 117/52 L 117/58 L Pulse Oximetry 96 93 91 Intake/Output Intake/Output: Intake & Output 02/09/21 02/10/21 02/11/21 02/12/21 23:59 23:59 23:59 23:59 Intake Total 1650 1870 1440 1230 Output Total 8751 501 0779 2000 Balance 650 6913 -391 -375 Meds/Results Medications: Active Medications Generic Name Dose Route Start Last Admin Trade Name Freq PRN Reason Stop Dose Admin Acetaminophen 650 mg 02/07/21 19:21 02/12/21 00:18 Acetaminophen 325 Mg Tablet PO 650 mg Q4H PRN Administration Mild Pain (1-3) or Fever Baricitinib 4 mg 02/11/21 09:00 02/12/21 10:15 Baricitinib 2 Mg Tablet PO 4 mg DAILY KAY Administration Dexamethasone Sodium Phosphate 6 mg 02/08/21 09:00 02/12/21 10:16 Dexamethasone Sod Phos Inj 4 Mg/Ml Vial IV PUSH 02/17/21 09:01 6 mg DAILY KAY Administration Enoxaparin Sodium 40 mg 02/08/21 09:00 02/12/21 10:15 Enoxaparin 40 Mg/0.4 Ml Syringe SUB-Q 40 mg DAILY KAY Administration Escitalopram Oxalate 10 mg 02/08/21 21:00 02/11/21 22:42 Escitalopram Oxalate 10 Mg Tablet PO 10 mg HS KAY Administration Remdesivir 100 mg in 250 mls @ 250 mls/hr
[2021-02-12] MEDS: REMDESIVIR 100 MG/NS 250 ML 100 MG/250 ML BAG 250 MG IVPB (21:26)
[2021-02-12] MEDS: ESCITALOPRAM OXALATE 10 MG TABLET PO (21:27)
[2021-02-13] VITALS (7 sets, daily range): BP systolic 108–129; BP diastolic 63–72; PULSE 49–64; RESP 16–20; TEMP 35.9–36.6; O2SAT 93–100
[2021-02-13] MEDS: ACETAMINOPHEN 325 MG TABLET 650 MG PO ×2 (04:05→14:18)
[2021-02-13] MEDS: LEVOTHYROXINE SODIUM 100 MCG TABLET PO (05:35)
[2021-02-13 07:32] LABS: Basophils Percent Auto 0.3 % (0.2-1.2); Hematocrit 35.4 % (37.0-47.0); Hemoglobin 12.1 g/dL (12.0-15.0); Immature Granulocyte Absolute 0.17 K/mm3 (0.00-0.031); Immature Granulocyte Percent A 1.7 % (0-0.5); Lymphocytes Absolute Auto 1.91 K/mm3 (0.9-3.2); Lymphocytes Percent Auto 19.4 % (18.3-44.2); Mean Corpuscular HGB Conc 34.2 g/dl (32-36); Mean Corpuscular Hemoglobin 30.3 pg (26-34); Mean Corpuscular Volume 88.7 fl (80-100); Mean Platelet Volume 9.9 fl (7.4-10.4); Monocytes Absolute Auto 0.8 K/mm3 (0.1-0.6); Monocytes Percent Auto 8.1 % (2.6-8.5); Neutrophils Percent Auto 70.5 % (45.5-73.1); Platelet Count Result 401 k/mm3 (150-375); Red Blood Count 3.99 M/mm3 (4.2-5.4); Red Cell Distribution Width 12.4 % (11.5-14.5); White Blood Count 9.9 K/mm3 (4.5-10.0)
[2021-02-13 07:40] LABS: Alanine Aminotransferase 38 U/L (4-35); Albumin Level 3.2 g/dL (3.5-5.1); Alkaline Phosphatase 60 U/L (38-126); Anion Gap 4 mmol/L (8-16); Aspartate Amino Transferase 34 U/L (14-36); Bilirubin,Total 0.4 mg/dL (0.2-1.3); Blood Urea Nitrogen 19 mg/dL (7-17); CRP 1.6 mg/dL (<1.0); Calcium 8.1 mg/dL (8.4-10.2); Carbon Dioxide 28 mmol/L (22-30); Chloride 100 mmol/L (98-107); Estimated CRCL calculation 90 ml/min; Estimated Glomerular Filt Rate > 60; Glucose 113 mg/dL (65-110); Potassium 3.7 mmol/L (3.4-5.0); Sodium 132 mmol/L (137-145)
[2021-02-13 07:46] LABS: NT Pro B Type Natriuretic Pept 173 pg/mL (5-100)
[2021-02-13 07:50] LABS: INR 1.1; Prothrombin Time 14.4 Seconds (11.1-14.7)
[2021-02-13 08:08] LABS: Anisocytosis 1+ (NORMAL); Platelet Estimate Adequate (Adequate)
[2021-02-13] MEDS: BARICITINIB 2 MG TABLET 4 MG PO (09:43)
[2021-02-13] MEDS: DEXAMETHASONE SOD PHOS INJ 4 MG/ML VIAL 6 MG IV PUSH (09:43)
[2021-02-13] MEDS: ENOXAPARIN 40 MG/0.4 ML SYRINGE SUB-Q (09:44)
--- NOTE | 2021-02-13 10:27 | PM.IMPN ---
Progress Note: A&P Assessment and Plan (1) Pneumonia due to 2019-nCoV: Code(s): U07.1 - COVID-19; J12.82 - Pneumonia due to coronavirus disease 2018 Status: Acute Assessment and Plan: Patient was positive for COVID 01/29/2021 and had symptoms since [place] -continue remdesivir (day 7), Decadron, baricitinib and Lovenox. -currently on 5L of o2, down from 15L -repeat CXR 02/11 shows COVID with mild progression -CTA 02/08 negative for PE (2) Acute respiratory failure with hypoxia: Code(s): J96.01 - Acute respiratory failure with hypoxia Status: Acute Assessment and Plan: Continue oxygen for sats less than 90 -secondary to above (3) Anxiety: Code(s): F41.9 - Anxiety disorder, unspecified Status: Acute Assessment and Plan: Continue Lexapro (4) Hypothyroidism: Code(s): E03.9 - Hypothyroidism, unspecified Status: Acute Assessment and Plan: Continue levothyroxine (5) Transaminitis: Code(s): R74.01 - Elevation of levels of liver transaminase levels Status: Acute Assessment and Plan: Mostly resolved, likely due to acute illness -hepatitis negative -monitor (6) Swelling of lower extremity: Code(s): M79.89 - Other specified soft tissue disorders Status: Acute Assessment and Plan: Likely due to dependency from being up in the chair and not moving as much -bnp mildly elevated, await echo -no LE DVTs on imaging Subjective Date/time seen: 02/13/21 10:27 Interval history: Pt is a 60-year-old female here for COVID. Patient was seen today and is doing okay. She is afraid to take deep breaths because it causes her lungs and chest to hurt but she has been trying to take deeper breaths. She has been sitting up in the chair mostly. She continues to cough and she feels SOB intermittently. She had a bad coughing spell overnight but has recovered from that. LE swelling has resolved. No n/v/d. appetite is good. Exam Narrative: General: Well developed well nourished patient in NAD HEENT: normocephalic Neck: supple Neuro: Alert and oriented x4 CV:RRR Resp: Crackles, bilaterally. No conversational dyspnea. Able to take deeper breaths today but still not able to take deep breaths. Abd: Soft, non distended. No pain to palpation. Positive bowel sounds Extremities: no pitting edema worse on the right leg. No erythema or pain Objective Data Vital Signs Vital Signs: Vital Signs - 24 hr 02/12/21 12:00 02/12/21 16:00 02/12/21 19:08 Temperature 97.4 F L 96.9 F L Pulse Rate 57 L 63 63 Respiratory Rate 18 20 20 Blood Pressure 117/58 L 128/59 L Pulse Oximetry 91 94 94 02/12/21 20:00 02/12/21 23:51 02/13/21 01:52 Temperature 97.4 F L 98.2 F Pulse Rate 77 53 L Respiratory Rate 20 20 Blood Pressure 119/71 127/64 Pulse Oximetry 95 90 94 02/13/21 04:00 02/13/21 08:00 Temperature 97.9 F 96.6 F L Pulse Rate 55 L 49 L Respiratory Rate 18 16 Blood Pressure 114/63 108/63 Pulse Oximetry 95 100 Intake/Output Intake/Output: Intake & Output 02/10/21 02/11/21 02/12/21 02/13/21 23:59 23:59 23:59 23:59 Intake Total 1870 1440 2570 470 Output Total 600 1650 4000 Balance 1270 -210 -1430 470 Meds/Results Medications: Active Medications Generic Name Dose Route Start Last Admin Trade Name Freq PRN Reason Stop Dose Admin Acetaminophen 650 mg 02/07/21 19:21 02/13/21 04:05 Acetaminophen 325 Mg Tablet PO 650 mg Q4H PRN Administration Mild Pain (1-3) or Fever Baricitinib 4 mg 02/11/21 09:00 02/13/21 09:43 Baricitinib 2 Mg Tablet PO 4 mg DAILY KAY Administration Dexamethasone Sodium Phosphate 6 mg 02/08/21 09:00 02/13/21 09:43 Dexamethasone Sod Phos Inj 4 Mg/Ml Vial IV PUSH 02/17/21 09:01 6 mg DAILY KAY Administration Enoxaparin Sodium 40 mg 02/08/21 09:00 02/13/21 09:44 Enoxaparin 40 Mg/0.4 Ml Syringe SUB-Q 40 mg SREE
[2021-02-13] MEDS: ESCITALOPRAM OXALATE 10 MG TABLET PO (21:13)
[2021-02-13] MEDS: REMDESIVIR 100 MG/NS 250 ML 100 MG/250 ML BAG 250 MG IVPB (21:13)
[2021-02-13] MEDS: LATANOPROST 0.005% OP SOLN 2.5 ML BTL 1 DROP EACH EYE (21:13)
[2021-02-13] MEDS: guaiFENesin 12 HR 600 MG TABCR PO (21:14)
[2021-02-14] VITALS (8 sets, daily range): BP systolic 105–129; BP diastolic 51–68; PULSE 43–55; RESP 17–18; TEMP 35.9–36.8; O2SAT 92–100
--- NOTE | 2021-02-14 | ECHO_ITS ---
Patient Info Name: Mandie Montoya Age: 60 years : 1960 Gender: Female Ht: 61 in Wt: 209 lbs BSA: 2.07 m2 HR: 56 bpm BP: 108 / 56 mmHg Heart Rhythm: Sinus Rhythm Technical Quality: Good Exam Date: 02/14/2021 11:01 AM Exam Location: [facility] Card Pulmonary Patient Status: Inpatient Admit Date: 02/07/2021 Staff Ordering Physician: Deepika Cueto PA-C Vat Cleaner: Anna Marie Pedersen RDCS Attending Provider: Deepika Cueto PA-C Referring Physician: Rom FRANCISCO; Exam Type: CA echo doppler color flow Study Info Indications R60.9 - Edema, unspecified Complete two-dimensional, color flow and Doppler transthoracic echocardiogram is performed. Summary 1. Complete two-dimensional, color flow and Doppler transthoracic echocardiogram is performed. 2. Left ventricular chamber dimension is normal. 3. Left ventricular systolic function is normal, estimated at >70%. 4. There is mildly increased left ventricular wall thickness. 5. The left ventricular diastolic function is normal. 6. There is trace tricuspid valve regurgitation. 7. No pulmonary hypertension, estimated pulmonary arterial systolic pressure is 29 mmHg. Left Ventricle Left ventricular chamber dimension is normal. Left ventricular systolic function is normal, estimated at >70%. There is mildly increased left ventricular wall thickness. The left ventricular diastolic function is normal. Right Ventricle Right ventricular chamber dimension is normal. Right ventricular systolic function is normal. Left Atria Left atrial chamber dimension is mildly enlarged. Right Atria Right atrial chamber dimension is normal. Aortic Valve The aortic valve is probable trileaflet. There is no aortic valve stenosis. There is no aortic valve regurgitation. Pulmonic Valve The pulmonic valve is not well visualized. Mitral Valve The mitral valve has normal leaflets. There is trace mitral valve regurgitation. The mitral valve annulus is mildly calcified. Tricuspid Valve The tricuspid valve leaflets are normal. There is trace tricuspid valve regurgitation. No pulmonary hypertension, estimated pulmonary arterial systolic pressure is 29 mmHg. Pericardium/Pleural The pericardium appears normal. There is no pericardial effusion. Inferior Vena Cava Normal inferior vena cava with >50% collapse upon inspiration consistent with normal right atrial pressure, 5 mmHg. Aorta The aortic root size at the sinus of Valsalva is normal. There is mild aortic atherosclerosis. Left Ventricular Outflow Tract Name Value Normal LVOT 2D LVOT Diameter 2.0 cm LVOT Doppler LVOT Peak Gradient 5 mmHg LVOT Mean Gradient 2 mmHg LVOT VTI 24 cm LVOT VTI/AV VTI Ratio 0.7 LVOT Stroke Volume 75 ml LVOT CO 4.1 l/min LVOT CI 2.0 l/min/m2 Pulmonic Valve Name
[2021-02-14] MEDS: LEVOTHYROXINE SODIUM 100 MCG TABLET PO (05:48)
[2021-02-14] MEDS: DEXAMETHASONE SOD PHOS INJ 4 MG/ML VIAL 6 MG IV PUSH (08:13)
[2021-02-14] MEDS: guaiFENesin 12 HR 600 MG TABCR PO ×2 (08:13→21:43)
[2021-02-14] MEDS: BARICITINIB 2 MG TABLET 4 MG PO (08:13)
[2021-02-14] MEDS: ENOXAPARIN 40 MG/0.4 ML SYRINGE SUB-Q (08:13)
[2021-02-14 08:14] LABS: Alanine Aminotransferase 40 U/L (4-35); Anion Gap 6 mmol/L (8-16); Aspartate Amino Transferase 26 U/L (14-36); Blood Urea Nitrogen 18 mg/dL (7-17); CRP 0.9 mg/dL (<1.0); Calcium 8.4 mg/dL (8.4-10.2); Carbon Dioxide 27 mmol/L (22-30); Chloride 101 mmol/L (98-107); Estimated CRCL calculation 78 ml/min; Estimated Glomerular Filt Rate > 60; Glucose 101 mg/dL (65-110); Lactate Dehydrogenase 789 U/L (313-618); Magnesium 2.3 mg/dL (1.6-2.3); Potassium 4.2 mmol/L (3.4-5.0); Prothrombin Time 13.4 Seconds (11.1-14.7); Sodium 134 mmol/L (137-145)
[2021-02-14 08:33] LABS: Basophils Percent Auto 0.2 % (0.2-1.2); Eosinophils Percent Auto 0.2 % (0-4.4); Hematocrit 38.5 % (37.0-47.0); Hemoglobin 13.2 g/dL (12.0-15.0); Immature Granulocyte Absolute 0.21 K/mm3 (0.00-0.031); Immature Granulocyte Percent A 2.1 % (0-0.5); Lymphocytes Absolute Auto 1.76 K/mm3 (0.9-3.2); Mean Corpuscular HGB Conc 34.3 g/dl (32-36); Mean Corpuscular Hemoglobin 30.3 pg (26-34); Mean Corpuscular Volume 88.5 fl (80-100); Mean Platelet Volume 9.6 fl (7.4-10.4); Monocytes Absolute Auto 0.7 K/mm3 (0.1-0.6); Monocytes Percent Auto 7.4 % (2.6-8.5); Neutrophils Absolute Auto 7.1 K/mm3 (1.3-6.7); Neutrophils Percent Auto 72.1 % (45.5-73.1); Platelet Count Result 440 k/mm3 (150-375); Red Blood Count 4.35 M/mm3 (4.2-5.4); Red Cell Distribution Width 12.4 % (11.5-14.5); White Blood Count 9.8 K/mm3 (4.5-10.0)
--- NOTE | 2021-02-14 09:07 | PCNWS ---
Weekly nutritional screen. Patient is tolerating current diet with adequate intake. No weight loss reported. No nutritional needs at this time.
--- NOTE | 2021-02-14 14:13 | PCNSR ---
On 02/14/21, the student, Bridget Streeter, provided care and completed [facility] documentation on this patient. I have reviewed the student's documentation and agree with the findings.
--- NOTE | 2021-02-14 14:26 | PM.IMPN ---
Progress Note: A&P Assessment and Plan (1) Pneumonia due to 2019-nCoV: Code(s): U07.1 - COVID-19; J12.82 - Pneumonia due to coronavirus disease 2018 Status: Acute Assessment and Plan: Patient was positive for COVID 01/29/2021 and had symptoms since [place] -continue remdesivir (day 8), Decadron, baricitinib and Lovenox. -currently on 4L of o2, down from 15L earlier in the stay -repeat CXR 02/11 shows COVID with mild progression. Will repeat tomorrow AM -CTA 02/08 negative for PE (2) Acute respiratory failure with hypoxia: Code(s): J96.01 - Acute respiratory failure with hypoxia Status: Acute Assessment and Plan: Continue oxygen for sats less than 90 -secondary to above (3) Anxiety: Code(s): F41.9 - Anxiety disorder, unspecified Status: Acute Assessment and Plan: Continue Lexapro (4) Hypothyroidism: Code(s): E03.9 - Hypothyroidism, unspecified Status: Acute Assessment and Plan: Continue levothyroxine (5) Transaminitis: Code(s): R74.01 - Elevation of levels of liver transaminase levels Status: Acute Assessment and Plan: Mostly resolved, likely due to acute illness -hepatitis negative -monitor (6) Swelling of lower extremity: Code(s): M79.89 - Other specified soft tissue disorders Status: Acute Assessment and Plan: Resolved. Likely due to dependency from being up in the chair and not moving as much -bnp mildly elevated, await echo -no LE DVTs on imaging Subjective Date/time seen: 02/14/21 14:26 Interval history: Pt is a 60-year-old female here for COVID. Patient was seen today and is doing better compared to yesterday. She says she is able to take deeper breaths and that she has been coughing less. She continues to have CP with coughing but nothing at rest. She is eating and drinking well. Her swelling in her LE has resolved. Exam Narrative: General: Well developed well nourished patient in NAD HEENT: normocephalic Neck: supple Neuro: Alert and oriented x4 CV:RRR Resp: Crackles, bilaterally. No conversational dyspnea. Able to take deeper breaths today but still not able to take deep breaths. Abd: Soft, non distended. No pain to palpation. Positive bowel sounds Extremities: no pitting edema today. No erythema or pain Objective Data Vital Signs Vital Signs: Vital Signs - 24 hr 02/13/21 16:00 02/13/21 20:00 02/13/21 22:30 Temperature 96.7 F L 97.4 F L Pulse Rate 54 L 49 L Respiratory Rate 18 18 Blood Pressure 114/64 123/63 Pulse Oximetry 94 97 95 02/14/21 00:00 02/14/21 04:00 02/14/21 08:00 Temperature 97.2 F L 96.6 F L 97.1 F L Pulse Rate 43 L 46 L 52 L Respiratory Rate 18 18 18 Blood Pressure 129/64 108/56 L 118/67 Pulse Oximetry 100 95 93 02/14/21 11:57 02/14/21 12:31 Temperature 97.0 F L Pulse Rate 52 L Respiratory Rate 18 Blood Pressure 120/68 Pulse Oximetry 93 93 Intake/Output Intake/Output: Intake & Output 02/11/21 02/12/21 02/13/21 02/14/21 23:59 23:59 23:59 23:59 Intake Total 1440 2820 1030 1140 Output Total 1650 4000 Balance -210 -1180 1030 1140 Meds/Results Medications: Active Medications Generic Name Dose Route Start Last Admin Trade Name Freq PRN Reason Stop Dose Admin Acetaminophen 650 mg 02/07/21 19:21 02/13/21 14:18 Acetaminophen 325 Mg Tablet PO 650 mg Q4H PRN Administration Mild Pain (1-3) or Fever Baricitinib 4 mg 02/11/21 09:00 02/14/21 08:13 Baricitinib 2 Mg Tablet PO 4 mg DAILY KAY Administration Dexamethasone Sodium Phosphate 6 mg 02/08/21 09:00 02/14/21 08:13 Dexamethasone Sod Phos Inj 4 Mg/Ml Vial IV PUSH 02/17/21 09:01 6 mg DAILY KAY Administration Enoxaparin Sodium 40 mg 02/08/21 09:00 02/14/21 08:13 Enoxaparin 40 Mg/0.4 Ml Syringe SUB-Q 40 mg DAILY KAY Administration Escitalopram Oxalate 10 mg 02/08/21 21:00 02/13/21
[2021-02-14] MEDS: ACETAMINOPHEN 325 MG TABLET 650 MG PO (14:31)
[2021-02-14] MEDS: REMDESIVIR 100 MG/NS 250 ML 100 MG/250 ML BAG 250 MG IVPB (21:42)
[2021-02-14] MEDS: LATANOPROST 0.005% OP SOLN 2.5 ML BTL 1 DROP EACH EYE (21:43)
[2021-02-14] MEDS: ESCITALOPRAM OXALATE 10 MG TABLET PO (21:43)
[2021-02-15] VITALS: BP 126/76; PULSE 52; RESP 20; TEMP 36.5; O2SAT 91
[2021-02-15 04:00] VITALS: BP 115/68; PULSE 55; RESP 20; TEMP 36.9; O2SAT 91
[2021-02-15] MEDS: LEVOTHYROXINE SODIUM 100 MCG TABLET PO (05:52)
[2021-02-15 06:24] LABS: Basophils Percent Auto 0.1 % (0.2-1.2); Eosinophils Percent Auto 0.3 % (0-4.4); Hemoglobin 12.7 g/dL (12.0-15.0); Immature Granulocyte Absolute 0.14 K/mm3 (0.00-0.031); Immature Granulocyte Percent A 1.4 % (0-0.5); Lymphocytes Absolute Auto 1.47 K/mm3 (0.9-3.2); Lymphocytes Percent Auto 14.4 % (18.3-44.2); Mean Corpuscular HGB Conc 33.4 g/dl (32-36); Mean Corpuscular Hemoglobin 30.5 pg (26-34); Mean Corpuscular Volume 91.1 fl (80-100); Mean Platelet Volume 9.5 fl (7.4-10.4); Monocytes Absolute Auto 0.9 K/mm3 (0.1-0.6); Monocytes Percent Auto 8.5 % (2.6-8.5); Neutrophils Absolute Auto 7.7 K/mm3 (1.3-6.7); Neutrophils Percent Auto 75.3 % (45.5-73.1); Platelet Count Result 414 k/mm3 (150-375); Red Blood Count 4.17 M/mm3 (4.2-5.4); Red Cell Distribution Width 12.8 % (11.5-14.5); White Blood Count 10.2 K/mm3 (4.5-10.0)
[2021-02-15 06:38] LABS: Alanine Aminotransferase 34 U/L (4-35); Albumin Level 3.2 g/dL (3.5-5.1); Alkaline Phosphatase 58 U/L (38-126); Anion Gap 6 mmol/L (8-16); Aspartate Amino Transferase 24 U/L (14-36); Bilirubin,Total 0.4 mg/dL (0.2-1.3); Blood Urea Nitrogen 18 mg/dL (7-17); Calcium 8.2 mg/dL (8.4-10.2); Carbon Dioxide 27 mmol/L (22-30); Chloride 100 mmol/L (98-107); Estimated CRCL calculation 78 ml/min; Estimated Glomerular Filt Rate > 60; Glucose 105 mg/dL (65-110); Potassium 4.1 mmol/L (3.4-5.0); Sodium 133 mmol/L (137-145)
[2021-02-15 07:01] LABS: INR 1.1; Prothrombin Time 14.3 Seconds (11.1-14.7)
[2021-02-15 08:00] VITALS: BP 120/66; PULSE 50; RESP 18; TEMP 36.3; O2SAT 97
[2021-02-15] MEDS: ENOXAPARIN 40 MG/0.4 ML SYRINGE SUB-Q (08:43)
[2021-02-15] MEDS: guaiFENesin 12 HR 600 MG TABCR PO (08:44)
[2021-02-15] MEDS: BARICITINIB 2 MG TABLET 4 MG PO (08:44)
[2021-02-15] MEDS: DEXAMETHASONE SOD PHOS INJ 4 MG/ML VIAL 6 MG IV PUSH (08:44)
[2021-02-15] MEDS: ACETAMINOPHEN 325 MG TABLET 650 MG PO (11:59)
[2021-02-15 14:00] VITALS: BP 129/68; PULSE 64; RESP 18; TEMP 36.1; O2SAT 95
--- NOTE | 2021-02-15 15:05 | PM.IMPN ---
Progress Note: A&P Assessment and Plan (1) Pneumonia due to 2019-nCoV: Code(s): U07.1 - COVID-19; J12.82 - Pneumonia due to coronavirus disease 2018 Status: Acute Assessment and Plan: Patient was positive for COVID 01/29/2021 and had symptoms since Thanksgiving -continue remdesivir (day 9), Decadron, baricitinib and Lovenox. -currently on 3L of o2, down from 15L earlier in the stay -CXR 02/15 shows no significant change -CTA 02/08 negative for PE -may consider home o2 in the next day or two. She may need to go home on o2 but she has been stable on around 3L for the last few days. Will finish out remdesevir and steroids. (2) Acute respiratory failure with hypoxia: Code(s): J96.01 - Acute respiratory failure with hypoxia Status: Acute Assessment and Plan: Continue oxygen for sats less than 90 -secondary to above (3) Anxiety: Code(s): F41.9 - Anxiety disorder, unspecified Status: Acute Assessment and Plan: Continue Lexapro (4) Hypothyroidism: Code(s): E03.9 - Hypothyroidism, unspecified Status: Acute Assessment and Plan: Continue levothyroxine (5) Transaminitis: Code(s): R74.01 - Elevation of levels of liver transaminase levels Status: Acute Assessment and Plan: resolved, likely due to acute illness -hepatitis negative -monitor (6) Swelling of lower extremity: Code(s): M79.89 - Other specified soft tissue disorders Status: Acute Assessment and Plan: Resolved. Likely due to dependency from being up in the chair and not moving as much -bnp mildly elevated, echo without significant abnormalities. -no LE DVTs on imaging Subjective Date/time seen: 02/15/21 15:05 Interval history: Pt is a 60-year-old female here for COVID. Patient was seen today and is doing well. She says this is her best day yet. She says she is able to take deeper breaths and that she has been coughing less. She continues to have CP with coughing but nothing at rest. She is eating and drinking well. Her swelling in her LE has resolved. Exam Narrative: General: Well developed well nourished patient in NAD HEENT: normocephalic Neck: supple Neuro: Alert and oriented x4 CV:RRR Resp: Pretty CTA today but were slightly diminished. No conversational dyspnea. Able to take deeper breaths today. Abd: Soft, non distended. No pain to palpation. Positive bowel sounds Extremities: no pitting edema today. No erythema or pain Objective Data Vital Signs Vital Signs: Vital Signs - 24 hr 02/14/21 15:39 02/14/21 20:00 02/14/21 20:27 Temperature 97.5 F L 98.3 F Pulse Rate 55 L 50 L Respiratory Rate 18 18 Blood Pressure 105/51 L 116/66 Pulse Oximetry 99 96 93 02/15/21 00:00 02/15/21 04:00 02/15/21 08:00 Temperature 97.7 F 98.5 F 97.3 F L Pulse Rate 52 L 55 L 50 L Respiratory Rate 20 20 18 Blood Pressure 126/76 115/68 120/66 Pulse Oximetry 91 91 97 Intake/Output Intake/Output: Intake & Output 02/12/21 02/13/21 02/14/21 02/15/21 23:59 23:59 23:59 23:59 Intake Total 2820 1280 2840 1130 Output Total 4000 500 Balance -1180 1280 2840 630 Meds/Results Medications: Active Medications Generic Name Dose Route Start Last Admin Trade Name Freq PRN Reason Stop Dose Admin Acetaminophen 650 mg 02/07/21 19:21 02/15/21 11:59 Acetaminophen 325 Mg Tablet PO 650 mg Q4H PRN Administration Mild Pain (1-3) or Fever Baricitinib 4 mg 02/11/21 09:00 02/15/21 08:44 Baricitinib 2 Mg Tablet PO 4 mg DAILY KAY Administration Dexamethasone Sodium Phosphate 6 mg 02/08/21 09:00 02/15/21 08:44 Dexamethasone Sod Phos Inj 4 Mg/Ml Vial IV PUSH 02/17/21 09:01 6 mg DAILY KAY Administration Enoxaparin Sodium 40 mg 02/08/21 09:00 02/15/21 08:43 Enoxaparin 40 Mg/0.4 Ml Syringe SUB-Q 40 mg DAILY KAY Administration Escitalopram Oxalate 10 mg 02/08/21 21:00 02/14/21 2
[2021-02-15 20:00] VITALS: O2SAT 96
[2021-02-15 22:00] VITALS: BP 124/71; PULSE 50; RESP 16; TEMP 36.1; O2SAT 96
--- NOTE | 2021-02-16 00:02 | PCRCNOTE ---
pt refusing CPAP stating she does not wear it
[2021-02-16] MEDS: ESCITALOPRAM OXALATE 10 MG TABLET PO ×2 (00:26→21:02)
[2021-02-16] MEDS: LATANOPROST 0.005% OP SOLN 2.5 ML BTL 1 DROP EACH EYE ×2 (00:26→21:02)
[2021-02-16] MEDS: REMDESIVIR 100 MG/NS 250 ML 100 MG/250 ML BAG 250 MG IVPB ×2 (00:26→21:02)
[2021-02-16] MEDS: guaiFENesin 12 HR 600 MG TABCR PO ×3 (00:26→21:02)
[2021-02-16] MEDS: ACETAMINOPHEN 325 MG TABLET 650 MG PO ×3 (00:36→22:34)
[2021-02-16] MEDS: LEVOTHYROXINE SODIUM 100 MCG TABLET PO (05:44)
[2021-02-16 06:00] VITALS: BP 118/61; PULSE 58; RESP 16; TEMP 36.1; O2SAT 95
[2021-02-16 08:38] LABS: Basophils Percent Auto 0.1 % (0.2-1.2); Eosinophils Absolute Auto 0.1 K/mm3 (0-0.3); Eosinophils Percent Auto 0.9 % (0-4.4); Hemoglobin 12.7 g/dL (12.0-15.0); Immature Granulocyte Absolute 0.11 K/mm3 (0.00-0.031); Immature Granulocyte Percent A 1.3 % (0-0.5); Lymphocytes Absolute Auto 1.43 K/mm3 (0.9-3.2); Lymphocytes Percent Auto 16.3 % (18.3-44.2); Mean Corpuscular HGB Conc 33.4 g/dl (32-36); Mean Corpuscular Hemoglobin 30.1 pg (26-34); Mean Platelet Volume 9.8 fl (7.4-10.4); Monocytes Absolute Auto 0.8 K/mm3 (0.1-0.6); Monocytes Percent Auto 9.1 % (2.6-8.5); Neutrophils Absolute Auto 6.4 K/mm3 (1.3-6.7); Neutrophils Percent Auto 72.3 % (45.5-73.1); Platelet Count Result 424 k/mm3 (150-375); Red Blood Count 4.22 M/mm3 (4.2-5.4); Red Cell Distribution Width 12.8 % (11.5-14.5); White Blood Count 8.8 K/mm3 (4.5-10.0)
[2021-02-16 08:44] LABS: INR 1.1
[2021-02-16 09:04] LABS: Alanine Aminotransferase 32 U/L (4-35); Aspartate Amino Transferase 37 U/L (14-36); Estimated CRCL calculation 69 ml/min; Estimated Glomerular Filt Rate > 60
[2021-02-16] MEDS: ENOXAPARIN 40 MG/0.4 ML SYRINGE SUB-Q (09:56)
[2021-02-16] MEDS: BARICITINIB 2 MG TABLET 4 MG PO (09:56)
[2021-02-16] MEDS: DEXAMETHASONE SOD PHOS INJ 4 MG/ML VIAL 6 MG IV PUSH (09:56)
[2021-02-16 10:00] VITALS: O2SAT 93
[2021-02-16 10:13] VITALS: O2SAT 90
[2021-02-16 13:56] VITALS: BP 109/53; PULSE 56; RESP 18; TEMP 36.9; O2SAT 93
--- NOTE | 2021-02-16 15:19 | PM.IMPN ---
Progress Note: A&P Assessment and Plan (1) Pneumonia due to 2019-nCoV: Code(s): U07.1 - COVID-19; J12.82 - Pneumonia due to coronavirus disease 2018 Status: Acute Assessment and Plan: Patient was positive for COVID 01/29/2021 and had symptoms since Thanksgi -continue remdesivir (last day today), Decadron, baricitinib and Lovenox. -will do home o2 eval, may need o2 at home -currently on 2L of o2, down from 15L earlier in the stay -CXR 02/15 shows no significant change -CTA 02/08 negative for PE -Likely discharge tomorrow after her decadron, remdesivir (tonight) and home o2. Pt understands she may need to go home with o2 and agrees with the plan. (2) Acute respiratory failure with hypoxia: Code(s): J96.01 - Acute respiratory failure with hypoxia Status: Acute Assessment and Plan: Continue oxygen for sats less than 90 -secondary to above (3) Anxiety: Code(s): F41.9 - Anxiety disorder, unspecified Status: Acute Assessment and Plan: Continue Lexapro (4) Hypothyroidism: Code(s): E03.9 - Hypothyroidism, unspecified Status: Acute Assessment and Plan: Continue levothyroxine (5) Transaminitis: Code(s): R74.01 - Elevation of levels of liver transaminase levels Status: Acute Assessment and Plan: resolved, likely due to acute illness -hepatitis negative -monitor (6) Swelling of lower extremity: Code(s): M79.89 - Other specified soft tissue disorders Status: Acute Assessment and Plan: Resolved. Likely due to dependency from being up in the chair and not moving as much -bnp mildly elevated, echo without significant abnormalities. -no LE DVTs on imaging -continue compression hose Subjective Date/time seen: 02/16/21 15:19 Interval history: Pt is a 60-year-old female here for COVID. Patient was seen today and is doing well. She said she did not sleep well overnight but is napping now. She says she is able to take deeper breaths and that she has been coughing less. She continues to have CP with coughing but nothing at rest. She is eating and drinking well. Her swelling in her LE has resolved. She is ready to go home soon. Exam Narrative: General: Well developed well nourished patient in NAD HEENT: normocephalic Neck: supple Neuro: Alert and oriented x4 CV:RRR Resp: Pretty CTA today but were slightly diminished. No conversational dyspnea. Able to take deeper breaths today. Abd: Soft, non distended. No pain to palpation. Positive bowel sounds Extremities: no pitting edema today. No erythema or pain. Lai hose applied. Objective Data Vital Signs Vital Signs: Vital Signs - 24 hr 02/15/21 20:00 02/15/21 22:00 02/16/21 06:00 Temperature 96.9 F L 96.9 F L Pulse Rate 50 L 58 L Respiratory Rate 16 16 Blood Pressure 124/71 118/61 Pulse Oximetry 96 96 95 02/16/21 10:00 02/16/21 10:13 02/16/21 13:56 Temperature 98.5 F Pulse Rate 56 L Respiratory Rate 18 Blood Pressure 109/53 L Pulse Oximetry 93 90 93 Intake/Output Intake/Output: Intake & Output 02/13/21 02/14/21 02/15/21 02/16/21 23:59 23:59 23:59 23:59 Intake Total 1280 3090 1570 1050 Output Total 500 500 Balance 1280 3090 1070 550 Meds/Results Medications: Active Medications Generic Name Dose Route Start Last Admin Trade Name Freq PRN Reason Stop Dose Admin Acetaminophen 650 mg 02/07/21 19:21 02/16/21 10:01 Acetaminophen 325 Mg Tablet PO 650 mg Q4H PRN Administration Mild Pain (1-3) or Fever Baricitinib 4 mg 02/11/21 09:00 02/16/21 09:56 Baricitinib 2 Mg Tablet PO 4 mg DAILY KAY Administration Dexamethasone Sodium Phosphate 6 mg 02/08/21 09:00 02/16/21 09:56 Dexamethasone Sod Phos Inj 4 Mg/Ml Vial IV PUSH 02/17/21 09:01 6 mg DAILY KAY Administration Enoxaparin Sodium 40 mg 02/08/21 09:00 02/16/21 09:56 Enoxaparin 40 Mg/0.4 Ml Syringe SUB-
[2021-02-16 21:00] VITALS: BP 122/67; PULSE 55; RESP 16; TEMP 36.1; O2SAT 96
[2021-02-17] VITALS (7 sets, daily range): BP systolic 128; BP diastolic 75; PULSE 56–96; RESP 16; TEMP 36.2; O2SAT 85–96
[2021-02-17] MEDS: LEVOTHYROXINE SODIUM 100 MCG TABLET PO (06:29)
[2021-02-17 07:03] LABS: Basophils Percent Auto 0.1 % (0.2-1.2); Eosinophils Percent Auto 0.3 % (0-4.4); Hematocrit 38.5 % (37.0-47.0); Hemoglobin 12.9 g/dL (12.0-15.0); Immature Granulocyte Percent A 0.9 % (0-0.5); Lymphocytes Absolute Auto 1.53 K/mm3 (0.9-3.2); Lymphocytes Percent Auto 14.5 % (18.3-44.2); Mean Corpuscular HGB Conc 33.5 g/dl (32-36); Mean Corpuscular Hemoglobin 30.3 pg (26-34); Mean Corpuscular Volume 90.4 fl (80-100); Mean Platelet Volume 9.8 fl (7.4-10.4); Monocytes Absolute Auto 0.9 K/mm3 (0.1-0.6); Monocytes Percent Auto 8.1 % (2.6-8.5); Neutrophils Percent Auto 76.1 % (45.5-73.1); Platelet Count Result 394 k/mm3 (150-375); Red Blood Count 4.26 M/mm3 (4.2-5.4); Red Cell Distribution Width 12.8 % (11.5-14.5); White Blood Count 10.6 K/mm3 (4.5-10.0)
[2021-02-17 07:12] LABS: Alanine Aminotransferase 29 U/L (4-35); Albumin Level 3.2 g/dL (3.5-5.1); Alkaline Phosphatase 54 U/L (38-126); Anion Gap 7 mmol/L (8-16); Aspartate Amino Transferase 22 U/L (14-36); Bilirubin,Total 0.5 mg/dL (0.2-1.3); Blood Urea Nitrogen 18 mg/dL (7-17); Calcium 8.1 mg/dL (8.4-10.2); Carbon Dioxide 26 mmol/L (22-30); Chloride 101 mmol/L (98-107); Estimated CRCL calculation 69 ml/min; Estimated Glomerular Filt Rate > 60; Glucose 104 mg/dL (65-110); Potassium 4.3 mmol/L (3.4-5.0); Sodium 134 mmol/L (137-145)
[2021-02-17] MEDS: ENOXAPARIN 40 MG/0.4 ML SYRINGE SUB-Q (08:39)
[2021-02-17] MEDS: DEXAMETHASONE SOD PHOS INJ 4 MG/ML VIAL 6 MG IV PUSH (08:39)
[2021-02-17] MEDS: guaiFENesin 12 HR 600 MG TABCR PO (08:39)
[2021-02-17] MEDS: BARICITINIB 2 MG TABLET 4 MG PO (08:39)
[2021-02-17] MEDS: ACETAMINOPHEN 325 MG TABLET 650 MG PO (09:51)
--- NOTE | 2021-02-17 10:07 | HOMEO2EVAL ---
Evaluation was performed at [facility] Home Oxygen Evaluation RC: Home Oxygen (O2) Evaluation Start: 02/16/21 15:18 Freq: ONCE Status: Active Protocol: RPE Activity Type Activity Date Activity User E-Sign Co-Sign Detail Recorded Client Recorded Date Recorded By Document 02/17/21 09:30 [email or web address] [email or web address] 02/17/21 10:07 DJO Document 02/17/21 09:35 [email or web address] [email or web address] 02/17/21 10:07 DJO Document 02/17/21 09:40 [email or web address] [email or web address] 02/17/21 10:07 DJO Document 02/17/21 09:45 [email or web address] [email or web address] 02/17/21 10:07 DJO Document 02/17/21 10:00 [email or web address] [email or web address] 02/17/21 10:07 DJO 02/17/21 02/17/21 02/17/21 09:30 09:35 09:40 Home O2 Evaluation Test Phase Resting Exercise Exercise Oxygen Delivery Room Air Room Air Nasal Cannula Oxygen Flow Rate (L/min) 1 Pulse Oximetry (90-100 %) 90 85 L 87 L Pulse Rate (60-100 beats/min) 74 87 93 Treatment Charges O2 Evaluation - Inpatient 02/17/21 02/17/21 09:45 10:00 Home O2 Evaluation Test Phase Exercise Resting Oxygen Delivery Nasal Cannula Room Air Oxygen Flow Rate (L/min) 2 Pulse Oximetry (90-100 %) 90 90 Pulse Rate (60-100 beats/min) 96 76 Treatment Charges
--- NOTE | 2021-02-17 10:54 | PM.DS ---
DS: Admitting Diagnosis Discharge Date 02/17/21 Admitting Diagnosis covid pna DS: Discharge Diagnosis Discharge Diagnosis (1) Pneumonia due to 2019-nCoV: Code(s): U07.1 - COVID-19; J12.82 - Pneumonia due to coronavirus disease 2019 Status: Acute Assessment and Plan: Patient was positive for COVID 01/29/2021 and had symptoms since -She completed remdesivir, Decadron, baricitinib and Lovenox. -home o2 shows no need for o2 at rest and 2L with activity -was up to 15L of o2 during his stay -CXR 02/15 shows no significant change -CTA 02/08 negative for PE -Likely discharge tomorrow after her decadron, remdesivir (tonight) and home o2. Pt understands she may need to go home with o2 and agrees with the plan. (2) Acute respiratory failure with hypoxia: Code(s): J96.01 - Acute respiratory failure with hypoxia Status: Acute Assessment and Plan: as above (3) Anxiety: Code(s): F41.9 - Anxiety disorder, unspecified Status: Acute Assessment and Plan: Continue Lexapro (4) Hypothyroidism: Code(s): E03.9 - Hypothyroidism, unspecified Status: Acute Assessment and Plan: Continue levothyroxine (5) Transaminitis: Code(s): R74.01 - Elevation of levels of liver transaminase levels Status: Acute Assessment and Plan: resolved, likely due to acute illness -hepatitis negative (6) Swelling of lower extremity: Code(s): M79.89 - Other specified soft tissue disorders Status: Acute Assessment and Plan: Resolved. Likely due to dependency from being up in the chair and not moving as much -bnp mildly elevated, echo without significant abnormalities. -no LE DVTs on imaging -continue compression hose DS: Summary Hospital Course Hospital Course: DOS 02/17/21 60-year-old female with a past medical history of obesity, obstructive sleep apnea and hypothyroidism who presented to the ER via EMS with chest pain and shortness of breath. She tested positive for COVID on 01/29/2021. She did not receive a COVID vaccine. She has also had accompanying occasional nausea. She has noticed nocturnal hypoxia with oxygen saturations as low as 84%. In the ER she required o2 and CTA of the chest showed moderate bilateral PNA. She was admitted to the hospitalist service and started on o2, remdesivir, Decadron and lovenox. The next day she had some slight pleuritic CP with cough so a CTA of the chest was done which showed no PE. Her o2 requirement did go up and she was placed on baricitinib. She required treatment for many days but eventually did improve. She was able to be weaned off o2 while at rest and was found to need 2L of o2 with activity. As for her CP, this improved as she improved. Echo was done which showed no cause for concern. Day of discharge the pt was feeling much better and ready to go. She was educated about the worrisome signs and symptoms to come back to the ER for and was discharged in stable condition. Please see above for further details. Status at Discharge Overall status at discharge: patient is progressing back to baseline Time Spent with Patient Time attestation: Total time spent providing and/or coordinating discharge services:39 min Time spent: Greater than 30 minutes Exam Narrative: General: Well developed well nourished patient in NAD HEENT: normocephalic Neck: supple Neuro: Alert and oriented x4 CV:RRR Resp: Pretty CTA today but were slightly diminished. No conversational dyspnea. Able to take deeper breaths today. Abd: Soft, non distended. No pain to palpation. Positive bowel sounds Extremities: no pitting edema today. No erythema or pain. Lai hose applied. DS: Data Data Completed and Pending Labs on day of discharge: Labs from last 24 hours 02/17/21 02/17/21 06:32 06:32 WBC 10.6 H RBC 4.26 Hgb 12.9 Hct 38.5 MCV 90.[address]
== END 2021-02-17 14:50 | disposition home or self-care (01) | DRG 177 ==
LOC: ANHED 19:18 → ANH3MEDSUR 02-08 03:12
PROVIDERS: Emergency Medicine; Internal Medicine; Admitting Provider Internal Medicine; Emergency Provider Family Medicine; PCP Nurse Practitioner Family; Visit Provider Physician Assistant
DX: U07.1 COVID-19 (principal); J12.82 Pneumonia due to coronavirus disease 2019; J96.01 Acute respiratory failure with hypoxia; F41.9 Anxiety disorder, unspecified; E03.9 Hypothyroidism, unspecified; M79.89 Other specified soft tissue disorders; F32.A Depression, unspecified; G47.33 Obstructive sleep apnea (adult) (pediatric); H40.9 Unspecified glaucoma; K76.0 Fatty (change of) liver, not elsewhere classified; E66.9 Obesity, unspecified; Z68.39 Body mass index [BMI] 39.0-39.9, adult; Z90.710 Acquired absence of both cervix and uterus
CPT/HCPCS: 36415; 71045; 71275; 80048; 80053; 80074; 80076; 82565; 82728; 83615; 83690; 83735; 83880; 84450; 84460; 84484; 85025; 85027; 85380; 85610; 85730; 86140; 93005; 93306; 93970; 94618; 94660; 99284; 99285; A9270; J1100; J1650; Q9967

== ENCOUNTER 2021-07-05 08:52 | Outpatient (CLI) | payer OTHER, SELFPAY ==
--- NOTE | ~2021-07-05 | MR_ITS ---
EXAMINATION: MR shoulder RT wo con DATE: 07/05/2021 09:56 INDICATION: Right upper arm and shoulder pain TECHNIQUE: Magnetic resonance imaging (MRI) of the right shoulder was performed without intravenous c ontrast. Sequences included axial PD-weighted FS FSE, coronal oblique PD-weighted FS FSE, coronal obl ique T2-weighted FS FSE, sagittal PD-weighted FS FSE, and sagittal T1-weighted SE. COMPARISON: None. FINDINGS: Coracoacromial arch: The acromion undersurface is curved in morphology (type II). The coracoacromial ligament is normal. M ild acromioclavicular osteoarthritis. Rotator cuff: Moderate supraspinatus and infraspinatus tendinopathy. There is minimal mucosal thickness versus near full-thickness articular sided tear extending 6 mm AP along the superior facet footplate of the supr aspinatus tendon. There is approximately 9 mm medial retraction of the tear margin. There is a residu al tiny linear intact portion of the bursal side of the tendon, unclear whether this represents a con tiguous intact bursal surface versus a few residual isolated intact tendon fibers. The teres minor te ndon is normal. Moderate subscapularis tendinopathy without discrete tear. Normal rotator cuff muscle bulk and signal. Biceps tendon, glenoid labrum and glenohumeral cartilage: Moderate tendinopathy of the intra-articular and extra-articular long head biceps tendon. There is a linear longitudinal split tear of the extraocular portion of the tendon. Amorphous mild increased sig nal at the superior to posterosuperior glenoid labrum consistent with mild degenerative tearing. Ramy ohumeral articular cartilage is normal. Fluid: Physiologic amount of fluid in the glenohumeral joint with mild synovitis at the axillary recess. Dis proportionate increased fluid along with mild synovitis at the long head biceps tendon sheath consist ent with mild bicipital tenosynovitis. Small amount of fluid in the subacromial/subdeltoid bursa whic h could be related to either bursitis or decompression of the glenohumeral joint fluid through the horvath spected full-thickness rotator cuff tear/perforation. No loose osteochondral bodies. Bones: No fracture or pathologic marrow replacing process. Mild edema underlying the lesser tuberosity likel y related to chronic rotator cuff disease. IMPRESSION: 1. Moderate rotator cuff tendinopathy with full/near full-thickness articular sided tear of the dista l supraspinatus tendon. 2. Degenerative tearing of the superior to posterior superior glenoid labrum. 3. Mild bicipital tenosynovitis with moderate tendinopathy of the long head biceps tendon with longit udinal split tearing of the extra articular portion of the tendon. 4. Mild acromioclavicular osteoarthritis. Reviewed, dictated and finalized at location A. IMPRESSION: 1. Moderate rotator cuff tendinopathy with full/near full-thickness articular s ided tear of the distal supraspinatus tendon. 2. Degenerative tearing of the superior to posterior superior glenoid labrum. 3. Mild bicipital tenosynovitis with moderate tendinopathy of the long head bic eps tendon with longitudinal split tearing of the extra articular portion of th e tendon. 4. Mild acromioclavicular osteoarthritis.
== END 2021-07-05 08:53 | disposition home or self-care (01) ==
LOC: ANHIMG 08:56
PROVIDERS: Visit Provider Family Medicine
DX: M75.101 Unspecified rotator cuff tear or rupture of right shoulder, not specified as traumatic (principal); M19.011 Primary osteoarthritis, right shoulder; S43.431A Superior glenoid labrum lesion of right shoulder, initial encounter; M65.811 Other synovitis and tenosynovitis, right shoulder
CPT/HCPCS: 73221